=== PATIENT | female | born 1995 | race Hispanic/Latino ===

== ENCOUNTER 2017-06-06 23:21 | Emergency (ER) | payer OTHER ==
[2017-06-06 23:51] LABS: Absolute Lymphocytes (CBC) 1.9 K/uL (0.7-4.9); Absolute Monocytes 0.5 K/uL (0.1-1.3); Absolute Neutrophil 5.8 K/uL (1.8-8.0); Basophils % 0.5 % (0-1.3); Eosinophils % 2.5 % (0-4.4); Hematocrit 34.3 % (36.0-45.0); Lymphocytes % 22.7 % (15.3-44.8); MCH 21.5 pg (27.0-35.0); MCV 65.9 fL (80-100); MPV 7.9 fL (7.6-11.3); Monocytes % 6.1 % (3.3-12.3)
[2017-06-07 00:11] LABS: Bicarbonate 24 mEq/L (21-31); Glucose Level 116 mg/dL (65-120); Potassium 3.4 mEq/L (3.6-5.0); Sodium Level 138 mEq/L (135-145)
[2017-06-07 00:12] LABS: BUN Blood Urea Nitrogen 15 mg/dL (6-20)
[2017-06-07 00:32] LABS: Anisocytosis 1+; Blood Morphology Comment NOTED (NOT SEEN); Hypochromasia 1+; Platelet Estimate ADEQ; Urine White Blood Cell Casts OK
[2017-06-07] MEDS ORDERED: KETOROLAC 30 MG/ML INJ ONE (00:42)
[2017-06-07 00:53] LABS: Barbiturates NEGATIVE; Benzodiazepines NEGATIVE; Cocaine NEGATIVE; METHAMPHETAM NEGATIVE; Opiates NEGATIVE; Phencyclidine NEGATIVE; THC Cannibis NEGATIVE
--- NOTE | 2017-06-07 05:10 | ER ---
Nurse's Notes [facility] Name: Chelsy Riddle Age: 22 yrs Sex: Female : 1995 Arrival Date: 06/06/2017 Time: 23:29 Bed 14 Private MD: Diagnosis: Chest pain, unspecified Presentation: 06/06 23:30 Presenting complaint: Patient states: "I have MVP of the heart and today I'm having ao chest pain." Patient describes pain as stabbing that radiates to the left side. Transition of care: patient was not received from another setting of care. Onset of symptoms was June 06, 2017 at 21:00. Care prior to arrival: None. 23:30 Method Of Arrival: Ambulatory ao 23:30 Acuity: JOSEPH 3 ao Triage Assessment: 23:35 General: Appears in no apparent distress. uncomfortable, Behavior is crying. Pain: ao Complains of pain in chest. EENT: No signs and/or symptoms were reported regarding the EENT system. Neuro: Level of Consciousness is awake, alert, obeys commands, Oriented to person, place, time, situation, Appropriate for age Moves all extremities. Speech is normal, Facial symmetry appears normal, Pupils are PERRLA. Cardiovascular: Cardiovascular: Capillary refill < 3 seconds Patient's skin is warm and dry. Respiratory: Airway is patent Respiratory effort is even, unlabored, Respiratory pattern is regular, symmetrical. GI: Abdomen is non-distended. : No signs and/or symptoms were reported regarding the genitourinary system. Derm: No signs and/or symptoms reported regarding the dermatologic system. Musculoskeletal: No signs and/or symptoms reported regarding the musculoskeletal system. 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 - Social history:: Smoking status: Patient/guardian denies using tobacco, Patient/guardian denies using alcohol, street drugs. Screenin:35 Abuse screen: Denies threats or abuse. Denies injuries from another. Nutritional ao screening: No deficits noted. Tuberculosis screening: No symptoms or risk factors identified. Fall Risk None identified. Assessment: 23:36 Pain: Pain radiates to Left side Pain Pain began 4 hours ago. ao 23:45 General: Appears in no apparent distress. comfortable, Behavior is calm, cooperative, aa1 appropriate for age. Pain: Complains of pain in chest Pain currently is 10 out of 10 on a pain scale. Quality of pain is described as stabbing, Is continuous. Neuro: Level of Consciousness is awake, alert, obeys commands, Oriented to person, place, time, situation, Gait is steady. Cardiovascular: Reports chest pain, Denies diaphoresis, nausea, palpitations, shortness of breath, Heart tones S1 S2 present Rhythm is regular. Respiratory: Airway is patent Respiratory effort is even, unlabored, Respiratory pattern is regular, symmetrical. GI: No signs and/or symptoms were reported involving the gastrointestinal system. : No signs and/or symptoms were reported regarding the genitourinary system. EENT: No signs and/or symptoms were reported regarding the EENT system. Derm: Skin is intact, is healthy with good turgor, Skin is pink, warm \\T\\ dry. Musculoskeletal: Capillary refill < 3 seconds. 06/07 00:32 Reassessment: Patient appears in no apparent distress at this time. Patient and/or aa1 family updated on plan of care and expected duration. Pain level reassessed. Patient is alert, oriented x 3, equal unlabored respirations, skin warm/dry/pink. Awaiting CXR. Patient states symptoms have improved. 00:40 Reassessment: Pt taken to xray. aa1 01:38 Reassessment: Patient appears in no apparent distress at this time. Patient is alert, aa1 oriented x 3, equal unlabored respirations, skin warm/dry/pink. Discussed d/c \\T\\ f/u instructions with pt \\T\\ mother; denies questions or concerns at this time Patient states feeling better. Vital Signs: 06/06 23:32 BP 130 / 97; Pulse 91; Resp 18; Temp 97.8(O); Pulse Ox 100% on R/A; Weight 48.08 kg ao (R); Height 5 ft. 2 in. (157.48 cm) (R); Pain 10/10; 06/07 00:18 BP 122 / 80; Pulse 77; Resp 18; Pulse Ox 100% on R/A; aa1 01:38 BP 127 / 80; Pulse 61; Resp 16; Temp 97.9; Pulse Ox 100% on R/A; Pain 4/10; aa1 06/06 23:32 Body Mass Index 19.39 (48.08 kg, 157.48 cm) ao ED Course: 06/06 23:29 Patient arrived in ED. ao 23:32 Jaci Ivey FNP-C is PHCP. snw 23:32 Juliano Younger MD is Attending Physician. snw 23:32 Triage completed. ao 23:32 Arm band placed on right wrist. Patient placed in an exam room, on a stretcher, on ao court monitor, on pulse oximetry. 23:36 Patient has correct armband on for positive identification. Pulse ox on. NIBP on. ao 23:36 Patient maintains SpO2 saturation greater than 95% on room air. ao 23:40 Initial lab(s) drawn, by me, sent to lab. Inserted saline lock: 20 gauge in right aa1 antecubital area, using aseptic technique. 23:43 EKG done, by ED staff. cb2 23:48 Kayleen Medrano, RN is Primary Nurse. aa1 06/07 00:32 UDS Sent. aa1 01:45 No provider procedures requiring assistance completed. IV discontinued, intact, aa1 bleeding controlled, No redness/swelling at site. Pressure dressing applied. Administered Medications: 00:27 Drug: TORadol 30 mg Route: IVP; Site: right antecubital; aa1 01:44 Follow up: Response: No adverse reaction; Pain is decreased aa1 Outcome: 01:31 Discharge ordered by . snw 01:45 Discharged to home ambulatory, with family. aa1 01:45 Condition: good 01:45 Discharge instructions given to patient, family, Instructed on discharge instructions, follow up and referral plans. medication usage, Demonstrated understanding of instructions, follow-up care, medications, Prescriptions given X 2. 01:46 Patient left the ED. aa1 Signatures: Kayleen Medrano RN RN aa1 Jaci Ivey FNP-C FNP-Clemente Lux RN RN Miguelito Lin cb2 Corrections: (The following items were deleted from the chart) 06/06 23:34 23:30 Presenting complaint: Patient states: "I have MBP of the heart and today I'm ao having chest pain." Patient describes pain as stabbing that radiates to the left side. ao
--- NOTE | 2017-06-07 05:10 | EDPHYS ---
Physician Documentation [facility] Name: Chelsy Riddle Age: 22 yrs Sex: Female : 1995 Arrival Date: 06/06/2017 Time: 23:29 Bed 14 Private MD: ED Physician Juliano Younger HPI: 06/07 01:28 This 22 yrs old Female presents to ER via Ambulatory with complaints of Chest snw Pain. 01:28 The patient or guardian reports chest pain that is located primarily in the anterior snw chest wall, bilaterally. The pain radiates to back. Associated signs and symptoms: Pertinent positives: lightheadedness. The chest pain is described as sharp, stabbing. Duration: The patient or guardian reports multiple episodes, that wax and wane. Severity of pain: At its worst the pain was moderate severe. The patient has experienced similar episodes in the past. post x 2 months, hx of MVP, saw Dr. Yanes 2 years ago. Usually controls pain with Motrin. 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 - Social history:: Smoking status: Patient/guardian denies using tobacco, Patient/guardian denies using alcohol, street drugs. ROS: 06/07 01:30 Constitutional: Negative for fever, chills, and weight loss, Eyes: Negative for injury, snw pain, redness, and discharge, ENT: Negative for injury, pain, and discharge, Neck: Negative for injury, pain, and swelling, Respiratory: Negative for shortness of breath, cough, wheezing, and pleuritic chest pain, Abdomen/GI: Negative for abdominal pain, nausea, vomiting, diarrhea, and constipation, Back: Negative for injury and pain, : Negative for injury, bleeding, discharge, and swelling, MS/Extremity: Negative for injury and deformity, Skin: Negative for injury, rash, and discoloration, Neuro: Negative for headache, weakness, numbness, tingling, and seizure. Cardiovascular: Positive for chest pain. Exam: 01:30 Constitutional: This is a well developed, well nourished patient who is awake, alert, snw and in no acute distress. Head/Face: Normocephalic, atraumatic. Eyes: Pupils equal round and reactive to light, extra-ocular motions intact. Lids and lashes normal. Conjunctiva and sclera are non-icteric and not injected. Cornea within normal limits. Periorbital areas with no swelling, redness, or edema. ENT: Nares patent. No nasal discharge, no septal abnormalities noted. Tympanic membranes are normal and external auditory canals are clear. Oropharynx with no redness, swelling, or masses, exudates, or evidence of obstruction, uvula midline. Mucous membranes moist. Neck: Trachea midline, no thyromegaly or masses palpated, and no cervical lymphadenopathy. Supple, full range of motion without nuchal rigidity, or vertebral point tenderness. No Meningismus. Chest/axilla: Normal chest wall appearance and motion. Nontender with no deformity. No lesions are appreciated. Cardiovascular: Regular rate and rhythm with a normal S1 and S2. No gallops, murmurs, or rubs. Normal PMI, no JVD. No pulse deficits. Respiratory: Lungs have equal breath sounds bilaterally, clear to auscultation and percussion. No rales, rhonchi or wheezes noted. No increased work of breathing, no retractions or nasal flaring. Abdomen/GI: Soft, non-tender, with normal bowel sounds. No distension or tympany. No guarding or rebound. No evidence of tenderness throughout. Back: No spinal tenderness. No costovertebral tenderness. Full range of motion. Skin: Warm, dry with normal turgor. Normal color with no rashes, no lesions, and no evidence of cellulitis. MS/ Extremity: Pulses equal, no cyanosis. Neurovascular intact. Full, normal range of motion. Neuro: Awake and alert, GCS 15, oriented to person, place, time, and situation. Cranial nerves II-XII grossly intact. Motor strength 5/5 in all extremities. Sensory grossly intact. Cerebellar exam normal. Normal gait. Psych: Awake, alert, with orientation to person, place and time. Behavior, mood, and affect are within normal limits. Vital Signs: 06/06 23:32 BP 130 / 97; Pulse 91; Resp 18; Temp 97.8(O); Pulse Ox 100% on R/A; Weight 48.08 kg ao (R); Height 5 ft. 2 in. (157.48 cm) (R); Pain 10/10; 06/07 00:18 BP 122 / 80; Pulse 77; Resp 18; Pulse Ox 100% on R/A; aa1 01:38 BP 127 / 80; Pulse 61; Resp 16; Temp 97.9; Pulse Ox 100% on R/A; Pain 4/10; aa1 06/06 23:32 Body Mass Index 19.39 (48.08 kg, 157.48 cm) ao MDM: 06/06 23:32 Patient medically screened. snw 06/07 01:32 ECG:. The patient's pulmonary embolism risk score was calculated as follows: Total snw Score: 0-2 points. This patient was found to be at low risk for a pulmonary embolism by using the Well's assessment criteria. LOWELL Risk Score: 1 - Recent [<24hrs] Severe Angina, TOTAL SCORE = 1. Data reviewed: vital signs, nurses notes. Data interpreted: Pulse oximetry: on room air is 100 %. Interpretation: normal. Counseling: I had a detailed discussion with the patient and/or guardian regarding: the historical points, exam findings, and any diagnostic results supporting the discharge/admit diagnosis, the presence of at least one elevated blood pressure reading (>120/80) during this emergency department visit, lab results, radiology results, the need for outpatient follow up, to return to the emergency department if symptoms worsen or persist or if there are any questions or concerns that arise at home. Special discussion: Based on the patient's history, exam, and Dx evaluation, there is no indication for emergent intervention or inpatient Tx. It is understood by the patient/guardian that if the Sx's persist or worsen they need to return immediately for re-evaluation. Based on the history and exam findings, there is no indication for further emergent testing or inpatient evaluation. I discussed with the patient/guardian the need to see the tar pot worker for further evaluation of the symptoms. I discussed with the patient/guardian the need to see the primary care provider for further evaluation of the symptoms. 06/06 23:33 Order name: UDS snw 06/06 23:33 Order name: CBC with Diff snw 06/06 23:33 Order name: Chem 7 snw 06/06 23:33 Order name: Troponin (emerg Dept Use Only) snw 06/06 23:52 Order name: CBC with Automated Diff; Complete Time: 00:55 EDMS 06/07 00:11 Order name: Basic Metabolic Panel; Complete Time: 00:55 EDMS 06/06 23:33 Order name: EKG; Complete Time: 23:33 snw 06/06 23:33 Order name: EKG - Nurse/Tech; Complete Time: 23:37 snw 06/07 00:08 Order name: Chest Pa And Lat (2 Views) XRAY snw 06/07 00:17 Order name: Troponin (Emerg Dept Use Only); Complete Time: 00:55 EDMS 06/07 00:32 Order name: CBC Smear Scan; Complete Time: 00:55 EDMS 06/07 00:53 Order name: Urine Drug Screen; Complete Time: 00:55 EDMS Administered Medications: 00:27 Drug: TORadol 30 mg Route: IVP; Site: right antecubital; aa1 01:44 Follow up: Response: No adverse reaction; Pain is decreased aa1 Disposition: 06/07/17 01:31 Discharged to Home. Impression: Chest pain, unspecified. - Condition is Stable. - Discharge Instructions: Nonspecific Chest Pain, Electrocardiography, Hypertension. - Prescriptions for Protonix 40 mg Oral Tablet - take 1 tablet by ORAL route once daily; 30 tablet. Diclofenac Sodium 75 mg Oral Tablet Sustained Release - take 1 tablet by ORAL route 2 times per day; 30 tablet. - Medication Reconciliation Form, Thank You Letter, Antibiotic Education, Prescription Opioid Use form. - Follow up: Private Physician; When: Tomorrow; Reason: Recheck today's complaints, Continuance of care, Re-evaluation by your physician. Follow up: Emergency Department; When: As needed; Reason: Worsening of condition. Addendum: 06/09/2017 07:05 Co-signature as Attending Physician, Juliano Younger MD I agree with the assessment and w a plan of care. Signatures: Dispatcher [employer] EDKayleen Colón RN RN aa1 Jaci Ivey, LOCAL SALES MANAGER-C LOCAL SALES MANAGER-Csnw Clemente Brewster RN RN ao [place], [place]
--- NOTE | 2017-06-07 05:11 | EKG ---
Test Date: 2017-06-06 Test Time: 23:36:11 Tape Controlled Machine Stitcher: SAL MEASUREMENT RESULTS: Intervals: Rate: 74 AL: 140 QRSD: 80 QT: 396 QTc: 439 [place]: P: 44 AL: 140 QRS: 57 T: 20 INTERPRETIVE STATEMENTS: Normal sinus rhythm Normal ECG No previous ECG available for comparison Electronically Signed On 06-07-17 05:10:45 CDT by Juan Crook
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
== END 2017-06-07 01:46 | disposition home or self-care (01) ==
LOC: ER 23:21
DX: R07.9 Chest pain, unspecified (principal); I34.1 Nonrheumatic mitral (valve) prolapse
CPT/HCPCS: 36415; 71046; 80048; 80307; 84484; 85025; 93005; 96374; 99284

== ENCOUNTER 2017-12-27 17:01 | Emergency (ER) | payer OTHER, SELFPAY ==
--- NOTE | 2017-12-27 18:49 | RAD REPORT ---
EXAM DESCRIPTION: CT - Head Brain Wo Cont - 12/27/2017 6:28 pm CLINICAL HISTORY: HEADACHE COMPARISON: Head Brain Wo Cont dated 08/25/2015 TECHNIQUE: All CT scans are performed using dose optimization technique as appropriate and may inclu de automated exposure control or mA/KV adjustment according to patient size. FINDINGS: No intracranial hemorrhage, hydrocephalus or extra-axial fluid collection.No areas of brai n edema or evidence of midline shift. The paranasal sinuses and mastoids are clear. The calvarium is intact. IMPRESSION: No acute intracranial abnormality.
--- NOTE | 2017-12-27 18:56 | ER ---
Nurse's Notes [facility] Name: Chelsy Riddle Age: 22 yrs Sex: Female : 1995 Arrival Date: 12/27/2017 Time: 17:04 Bed 8 Private MD: None, None Diagnosis: Headache Presentation: 12/27 17:07 Presenting complaint: Patient states: i ve had a headache since yesterday, front area; hj light sensitive; took ibuprofen but not helping; reports nausea and vomiting; hx of migraine;. Transition of care: patient was not received from another setting of care. Onset of symptoms was December 27, 2017. Risk Assessment: Do you want to hurt yourself or someone else? Patient reports no desire to harm self or others. Initial Sepsis Screen: Does the patient meet any 2 criteria? No. Patient's initial sepsis screen is negative. Does the patient have a suspected source of infection? No. Patient's initial sepsis screen is negative. Care prior to arrival: None. 17:07 Method Of Arrival: Ambulatory 17:07 Acuity: JOSEPH 3 hj Triage Assessment: 17:09 Headache History: The patient has had previous headaches. General: Appears in no hj apparent distress. uncomfortable, Behavior is calm, cooperative, appropriate for age. Pain: Complains of pain in head Pain currently is 10 out of 10 on a pain scale. Pain began 1 day ago. Also complains of nausea. Neuro: Level of Consciousness is awake, alert, obeys commands, Oriented to person, place, time, situation, Appropriate for age. 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 - Social history:: Smoking status: Patient/guardian denies using tobacco, Patient/guardian denies using alcohol. - Ebola Screening: : Patient negative for fever greater than or equal to 101.5 degrees Fahrenheit, and additional compatible Ebola Virus Disease symptoms Patient denies exposure to infectious person Patient denies travel to an Ebola-affected area in the 21 days before illness onset. Screenin:10 Abuse screen: Denies threats or abuse. Denies injuries from another. Nutritional hj screening: No deficits noted. Tuberculosis screening: No symptoms or risk factors identified. Fall Risk None identified. Assessment: 18:10 General: Appears in no apparent distress. uncomfortable, slender, well groomed, well sg developed, well nourished, Behavior is calm, cooperative, appropriate for age. Pain: Complains of pain in head Quality of pain is described as aching. Neuro: Level of Consciousness is awake, alert, obeys commands, Oriented to person, place, time, situation, Speech is normal, Facial symmetry appears normal. Cardiovascular: Capillary refill is brisk in bilateral fingers Patient's skin is warm and dry. Chest pain is denied. Respiratory: Airway is patent Respiratory effort is even, unlabored, Respiratory pattern is regular, symmetrical. GI: Abdomen is flat, non-distended. : No signs and/or symptoms were reported regarding the genitourinary system. EENT: No signs and/or symptoms were reported regarding the EENT system. Derm: Skin is pink, warm \T\ dry. Musculoskeletal: No signs and/or symptoms reported regarding the musculoskeletal system. 19:00 Reassessment: Patient appears in no apparent distress at this time. Patient and/or sg family updated on plan of care and expected duration. Pain level reassessed. Patient is alert, oriented x 3, equal unlabored respirations, skin warm/dry/pink. Patient states symptoms have not improved. 19:46 Reassessment: Patient appears in no apparent distress at this time. Patient and/or aa1 family updated on plan of care and expected duration. Pain level reassessed. Patient is alert, oriented x 3, equal unlabored respirations, skin warm/dry/pink. NS bolus infusing. Will d/c pt once bolus complete per provider orders. 20:10 Reassessment: Patient appears in no apparent distress at this time. Patient and/or aa1 family updated on plan of care and expected duration. Pain level reassessed. Patient is alert, oriented x 3, equal unlabored respirations, skin warm/dry/pink. 500cc NS infused from liter bag at this time however pt states she would like to be discharged w/o finishing her IVF. Discussed d/c \T\ f/u instructions with pt; denies questions or concerns at this time Patient states feeling better. Vital Signs: 17:10 BP 122 / 81; Pulse 75; Resp 18; Temp 98.2(O); Pulse Ox 100% on R/A; Weight 52.62 kg; hj Height 5 ft. 3 in. (160.02 cm); Pain 10/10; 20:10 BP 120 / 76; Pulse 74; Resp 16; Pulse Ox 100% on R/A; Pain 3/10; aa1 17:10 Body Mass Index 20.55 (52.62 kg, 160.02 cm) ED Course: 17:04 Patient arrived in ED. mr 17:04 None, None is Private Physician. mr 17:08 Triage completed. hj 17:10 Arm band placed on left wrist. hj 17:12 Patient has correct armband on for positive identification. Bed in low position. Call light in reach. Side rails up X 1. 17:31 Grayson Daomn NP is PHCP. pm1 17:31 Nancy Evans MD is Attending Physician. pm1 18:16 Inserted saline lock: 22 gauge in right antecubital area, using aseptic technique. jb1 18:28 CT Head Brain wo Cont In Process Unspecified. EDMS 19:45 Kayleen Medrano, RN is Primary Nurse. aa1 20:10 No provider procedures requiring assistance completed. IV discontinued, intact, aa1 bleeding controlled, No redness/swelling at site. Pressure dressing applied. Administered Medications: 18:45 Drug: NS 0.9% 1000 ml Route: IV; Rate: 1000 ml; Site: right antecubital; sg 20:10 Follow up: IV Status: Completed infusion aa1 18:45 Drug: Benadryl 25 mg Route: PO; sg 20:10 Follow up: Response: No adverse reaction; Marked relief of symptoms aa1 18:45 Drug: TORadol 30 mg Route: IVP; Site: right antecubital; sg 20:10 Follow up: Response: No adverse reaction; Pain is decreased aa1 18:45 Drug: Reglan 10 mg Route: IVP; Site: right antecubital; sg 20:10 Follow up: Response: No adverse reaction; Pain is decreased aa1 Outcome: 18:55 Discharge ordered by . pm1 20:10 Discharged to home ambulatory. aa1 20:10 Condition: good 20:10 Discharge instructions given to patient, Instructed on discharge instructions, follow up and referral plans. medication usage, Demonstrated understanding of instructions, follow-up care, medications, Prescriptions given X 1. 20:12 Patient left the ED. aa1 Signatures: Dispatcher [employer] EDÁlvaro Epperson jb1 Chris Mckenna, RN RN Kayleen Delacruz RN RN aa1 Tori Diaz mr EdwinJase RN RN hj Marinas, Patrick, GEORGI HAND LASTER pm1 Corrections: (The following items were deleted from the chart) 17:13 17:10 Pulse 75bpm; Resp 18bpm; Pulse Ox 100% RA; Temp 98.2F Oral; 52.62 kg; Height 5 hj ft. 3 in.; BMI: 20.5; Pain 12/23; hj
--- NOTE | 2017-12-27 18:56 | EDPHYS ---
Physician Documentation [facility] Name: Chelsy Riddle Age: 22 yrs Sex: Female : 1995 Arrival Date: 12/27/2017 Time: 17:04 Bed 8 Private MD: None, None ED Physician Nancy Evans HPI: 12/27 18:53 This 22 yrs old Female presents to ER via Ambulatory with complaints of pm1 Headache. 18:53 The patient complains of pain to the forehead. The patient describes the headache as pm1 aching, constant. Onset: The symptoms/episode began/occurred yesterday. Associated signs and symptoms: Pertinent positives: Photophobia Pertinent negatives: altered mental status, dizziness, fever, nausea, paresthesias, rash, vision changes, vomiting, weakness. Severity of symptoms: in the emergency department the pain is actually worse. Headache History: The patient has had previous headaches and this one is more severe than previous episodes. The symptoms are alleviated by nothing. the symptoms are aggravated by lights, noise. The patient has not experienced similar symptoms in the past. The patient has not recently seen a physician. 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 - Social history:: Smoking status: Patient/guardian denies using tobacco, Patient/guardian denies using alcohol. - Ebola Screening: : Patient negative for fever greater than or equal to 101.5 degrees Fahrenheit, and additional compatible Ebola Virus Disease symptoms Patient denies exposure to infectious person Patient denies travel to an Ebola-affected area in the 21 days before illness onset. ROS: 18:53 Constitutional: Negative for fever, chills, and weight loss, Eyes: Negative for injury, pm1 pain, redness, and discharge, ENT: Negative for injury, pain, and discharge, Neck: Negative for injury, pain, and swelling, Cardiovascular: Negative for chest pain, palpitations, and edema, Respiratory: Negative for shortness of breath, cough, wheezing, and pleuritic chest pain, Abdomen/GI: Negative for abdominal pain, nausea, vomiting, diarrhea, and constipation, Back: Negative for injury and pain, MS/Extremity: Negative for injury and deformity, Skin: Negative for injury, rash, and discoloration. 18:53 Neuro: Positive for headache, Negative for dizziness, numbness, tingling, weakness. Exam: 18:53 Constitutional: This is a well developed, well nourished patient who is awake, alert, pm1 and in no acute distress. Head/Face: Normocephalic, atraumatic. Eyes: Pupils equal round and reactive to light, extra-ocular motions intact. Lids and lashes normal. Conjunctiva and sclera are non-icteric and not injected. Cornea within normal limits. Periorbital areas with no swelling, redness, or edema. ENT: Nares patent. No nasal discharge, no septal abnormalities noted. Tympanic membranes are normal and external auditory canals are clear. Oropharynx with no redness, swelling, or masses, exudates, or evidence of obstruction, uvula midline. Mucous membranes moist. Neck: Trachea midline, no thyromegaly or masses palpated, and no cervical lymphadenopathy. Supple, full range of motion without nuchal rigidity, or vertebral point tenderness. No Meningismus. Chest/axilla: Normal chest wall appearance and motion. Nontender with no deformity. No lesions are appreciated. Cardiovascular: Regular rate and rhythm with a normal S1 and S2. No gallops, murmurs, or rubs. No pulse deficits. Respiratory: Lungs have equal breath sounds bilaterally, clear to auscultation and percussion. No rales, rhonchi or wheezes noted. No increased work of breathing, no retractions or nasal flaring. Abdomen/GI: Soft, non-tender, with normal bowel sounds. No distension or tympany. No guarding or rebound. No evidence of tenderness throughout. Back: No spinal tenderness. No costovertebral tenderness. Full range of motion. Skin: Warm, dry with normal turgor. Normal color with no rashes, no lesions, and no evidence of cellulitis. MS/ Extremity: Pulses equal, no cyanosis. Neurovascular intact. Full, normal range of motion. 18:53 Neuro: Orientation: is normal, Mentation: is normal, Cranial nerves: CN II- XII are normal as tested, Cerebellar function: normal finger to nose testing, Motor: is normal, moves all fours, strength is normal, strength is 5/5 in all extremities, Sensation: is normal, no obvious gross deficits, Gait: is steady, at a normal pace, without difficulty. Vital Signs: 17:10 BP 122 / 81; Pulse 75; Resp 18; Temp 98.2(O); Pulse Ox 100% on R/A; Weight 52.62 kg; hj Height 5 ft. 3 in. (160.02 cm); Pain 10/10; 20:10 BP 120 / 76; Pulse 74; Resp 16; Pulse Ox 100% on R/A; Pain 3/10; aa1 17:10 Body Mass Index 20.55 (52.62 kg, 160.02 cm) hj MDM: 17:51 Patient medically screened. pm1 18:53 Data reviewed: vital signs. Data interpreted: Pulse oximetry: on room air is 100 %. pm1 Interpretation: normal. Counseling: I had a detailed discussion with the patient and/or guardian regarding: the historical points, exam findings, and any diagnostic results supporting the discharge/admit diagnosis, radiology results, the need for outpatient follow up, to return to the emergency department if symptoms worsen or persist or if there are any questions or concerns that arise at home. 12/27 18:00 Order name: Urine Dipstick--Ancillary (enter results); Complete Time: 20:49 bd 12/27 18:02 Order name: Urine --Ancillary (enter results); Complete Time: 20:49 bd 12/27 18:05 Order name: CT Head Brain wo Cont; Complete Time: 18:53 pm1 12/27 18:05 Order name: IV Saline Lock; Complete Time: 18:16 pm1 Administered Medications: 18:45 Drug: NS 0.9% 1000 ml Route: IV; Rate: 1000 ml; Site: right antecubital; sg 20:10 Follow up: IV Status: Completed infusion aa1 18:45 Drug: Benadryl 25 mg Route: PO; sg 20:10 Follow up: Response: No adverse reaction; Marked relief of symptoms aa1 18:45 Drug: TORadol 30 mg Route: IVP; Site: right antecubital; sg 20:10 Follow up: Response: No adverse reaction; Pain is decreased aa1 18:45 Drug: Reglan 10 mg Route: IVP; Site: right antecubital; sg 20:10 Follow up: Response: No adverse reaction; Pain is decreased aa1 Disposition: 12/28 09:54 Co-signature as Attending Physician, Nancy Evans MD. ma2 Disposition: 12/27/17 18:55 Discharged to Home. Impression: Headache. - Condition is Stable. - Discharge Instructions: Migraine Headache. - Prescriptions for Fiorinal 50- 325-40 mg Oral Capsule - take 1 capsule by ORAL route every 4 hours As needed - not to exceed 6 capsules per day; 20 capsule. - Medication Reconciliation Form, Thank You Letter, Antibiotic Education, Prescription Opioid Use form. - Follow up: Emergency Department; When: As needed; Reason: Worsening of condition. Follow up: Private Physician; When: 2 - 3 days; Reason: Recheck today's complaints, Continuance of care, Re-evaluation by your physician. - Problem is new. - Symptoms have improved. Signatures: Dispatcher [employer] EDMS Chris Mckenna RN RN Kayleen Medrano RN RN aa1 Jase Pineda RN RN Grayson Damon, AUTOMATIC MACHINES SUPERVISOR AUTOMATIC MACHINES SUPERVISOR pm1 Nancy Evans MD MD ma2 Corrections: (The following items were deleted from the chart) 12/27 20:12 18:55 12/27/2017 18:55 Discharged to Home. Impression: Headache. Condition is Stable. aa1 Forms are Medication Reconciliation Form, Thank You Letter, Antibiotic Education, Prescription Opioid Use. Follow up: Emergency Department; When: As needed; Reason: Worsening of condition. Follow up: Private Physician; When: 2 - 3 days; Reason: Recheck today's complaints, Continuance of care, Re-evaluation by your physician. Problem is new. Symptoms have improved. pm1
[2017-12-27] MEDS ORDERED: NA CHLORIDE 0.9% 1,000 ML ONE (19:15)
[2017-12-27] MEDS ORDERED: DIPHENHYDRAMINE 12.5MG/5ML LIQ ONE (19:15)
[2017-12-27] MEDS ORDERED: KETOROLAC 30 MG/ML INJ ONE (19:15)
[2017-12-27] MEDS ORDERED: METOCLOPRAMIDE 10 MG/2mL INJ ONE (19:15)
[2017-12-27 19:54] LABS: Urine Blood 2+ (NEG); Urine Glucose NEGATIVE (NEG); Urine Protein 1+ (NEG); Urine Specific Gravity 1.015 (1.005-1.030); Urine pH 8.5 (5.0-7.0)
== END 2017-12-27 20:12 | disposition home or self-care (01) ==
LOC: ER 17:01
DX: R51 Headache (principal)
CPT/HCPCS: 70450; 81003; 81025; 96361; 96374; 96375; 99284; J2765; J7030

== ENCOUNTER 2019-06-12 19:23 | Emergency (ER) | payer SELFPAY ==
--- OUTSIDE RECORDS SUMMARY | 2019-06-12 19:26 | XMS REPORT ---
:1995 [facility] Address [address] [place] [address] [address] [place] [address] Care Team Providers Name Role Phone Unavailable Unavailable Unavailable Problems This patient has no known problems. Allergies, Adverse Reactions, Alerts This patient has no known allergies or adverse reactions. Medications This patient has no known medications.
[2019-06-12 20:14] LABS: Absolute Lymphocytes (CBC) 1.8 K/uL (0.7-4.9); Basophils % 0.8 % (0-1.3); Hematocrit 32.8 % (36.0-45.0); Lymphocytes % 30.1 % (15.3-44.8); MPV 8.2 fL (7.6-11.3); RBC Red Blood Cell Count 4.77 M/uL (3.86-4.86)
[2019-06-12 20:35] LABS: BUN Blood Urea Nitrogen 13 mg/dL (7-18); Bicarbonate 25 mmol/L (21-32); Blood Morphology Comment NOTED (NOT SEEN); Glucose Level 91 mg/dL (74-106); Magnesium 2.1 mg/dL (1.8-2.4); Platelet Estimate ADEQ; Potassium 3.6 mmol/L (3.5-5.1); Sodium Level 140 mmol/L (136-145); Troponin (Emerg Dept Use Only) < 0.02 ng/mL (0.0-0.045); Urine White Blood Cell Casts OK
--- NOTE | 2019-06-12 20:35 | RAD REPORT ---
EXAM DESCRIPTION: Janette Single View06/12/2019 8:25 pm CLINICAL HISTORY: Chest pain COMPARISON: 2017 FINDINGS: The lungs appear clear of acute infiltrate. The heart is normal size IMPRESSION: No acute abnormalities displayed
[2019-06-12] MEDS ORDERED: KETOROLAC 30 MG/ML INJ ONE (21:03)
[2019-06-12] MEDS ORDERED: dexAMETHasone 10 MG/ML VIAL ONE (21:03)
--- NOTE | 2019-06-12 21:49 | EDPHYS ---
Physician Documentation [facility] Name: Chelsy Riddle Age: 24 yrs Sex: Female : 1995 Arrival Date: 06/12/2019 Time: 19:27 Bed 13 Private MD: ED Physician Abhijit Ponce HPI: 06/11 19:59 This 24 yrs old Female presents to ER via Ambulatory with complaints of Left rn arm pain. 19:59 The patient or guardian complains of pain, tingling. The complaints affect the entire rn left arm. Onset: The symptoms/episode began/occurred this morning. Modifying factors: The symptoms are alleviated by nothing. the symptoms are aggravated by movement. Associated signs and symptoms: Pertinent positives: numbness, pain, tingling, Pertinent negatives: decreased range of motion, deformity, erythema, fever, weakness. Severity of symptoms: At their worst the symptoms were mild, in the emergency department the symptoms are unchanged. The patient has not experienced similar symptoms in the past. Reports left arm pain, began this morning, no trauma, no fever, reports painful to touch as well as tingling/numbness, constant entire day. No deformity. No rash. No redness. Reports also has left chest wall pain, no sob or cough. Reports has MVP but hasn't felt like this.. 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 - Social history:: Smoking status: Patient denies any tobacco usage or history of. Patient/guardian denies using alcohol, street drugs, tobacco products. - Family history:: not pertinent. - Hospitalizations: : No recent hospitalization is reported. ROS: 19:59 Constitutional: Negative for fever, chills, and weight loss, Eyes: Negative for injury, rn pain, redness, and discharge, Neck: Negative for injury, pain, and swelling, Cardiovascular: Negative for palpitations, and edema, Respiratory: Negative for shortness of breath, cough, wheezing, and pleuritic chest pain, Abdomen/GI: Negative for abdominal pain, nausea, vomiting, diarrhea, and constipation, MS/Extremity: Negative for injury and deformity, Skin: Negative for injury, rash, and discoloration, Neuro: Negative for headache, weakness, and seizure. Exam: 19:59 Constitutional: This is a well developed, well nourished patient who is awake, alert, rn and in no acute distress. Ambulatory to room without difficulty or distress Head/Face: Normocephalic, atraumatic. Neck: Trachea midline, no thyromegaly or masses palpated, and no cervical lymphadenopathy. Supple, full range of motion without nuchal rigidity, or vertebral point tenderness. No Meningismus. Cardiovascular: Regular rate and rhythm. No pulse deficits. Respiratory: Lungs have equal breath sounds bilaterally, clear to auscultation. No increased work of breathing, no retractions or nasal flaring. Skin: Warm, dry with normal turgor. Normal color with no rashes, no lesions, and no evidence of cellulitis. MS/ Extremity: Pulses equal, no cyanosis. Neurovascular intact. Mild painful ROM entire left arm. Equal circumference. No mottling or induration. Neuro: Awake and alert, GCS 15, oriented to person, place, time, and situation. Cranial nerves II-XII grossly intact. Motor strength 5/5 in all extremities. Sensory grossly intact. Cerebellar exam normal. Normal gait. Vital Signs: 19:29 BP 153 / 79; Pulse 83; Resp 17; Temp 98.0; Pulse Ox 100% ; Weight 49.9 kg; Height 5 ft. ll1 2 in. (157.48 cm); Pain 10/10; 20:30 BP 141 / 70; Pulse 80; Resp 16; Pulse Ox 99% ; rr5 21:20 BP 123 / 78; Pulse 80; Resp 16; Pulse Ox 100% on R/A; rr5 22:00 BP 115 / 75; Pulse 92; Resp 17; Temp 97.8; Pulse Ox 99% ; Pain 4/10; rr5 19:29 Body Mass Index 20.12 (49.90 kg, 157.48 cm) ll1 MDM: 19:33 Patient medically screened. rn 20:47 Differential diagnosis: muscle pain, radiculopathy, radiated pain, pain from MVP, MSK rn pain, early infection. Data reviewed: vital signs, nurses notes, lab test result(s), EKG, radiologic studies, plain films, and as a result, I will discharge patient. Counseling: I had a detailed discussion with the patient and/or guardian regarding: the historical points, exam findings, and any diagnostic results supporting the discharge/admit diagnosis, lab results. 21:48 ED course: No acute findings, neg u/s, will dc home with steroids and rn anti-inflammatories. . 06/11 19:42 Order name: Basic Metabolic Panel; Complete Time: 20:47 rn 06/11 19:42 Order name: CBC with Diff; Complete Time: 20:47 rn 06/11 19:42 Order name: Troponin (emerg Dept Use Only); Complete Time: 20:47 rn 06/11 19:42 Order name: XRAY Chest (1 view); Complete Time: 20:47 rn 06/11 19:42 Order name: Magnesium; Complete Time: 20:47 rn 06/11 20:37 Order name: CBC Smear Scan; Complete Time: 20:47 EDMS 06/11 19:42 Order name: EKG; Complete Time: 19:44 rn 06/11 19:42 Order name: Cardiac monitoring; Complete Time: 19:56 rn 06/11 19:42 Order name: EKG - Nurse/Tech; Complete Time: 19:56 rn 06/11 19:42 Order name: IV Saline Lock; Complete Time: 19:56 rn 06/11 19:42 Order name: Labs collected and sent; Complete Time: 19:56 rn 06/11 20:50 Order name: Extremity Venous Uni [facility] rn 06/11 19:42 Order name: O2 Per Protocol; Complete Time: 19:56 rn 06/11 19:42 Order name: O2 Sat Monitoring; Complete Time: 19:56 rn Administered Medications: 21:06 Drug: TORadol - Ketorolac 15 mg Route: IVP; Site: left antecubital; ea 21:59 Follow up: Response: No adverse reaction; Pain is decreased rr5 21:07 Drug: Decadron - Dexamethasone 10 mg Route: IVP; Site: left antecubital; ea 21:59 Follow up: Response: No adverse reaction; Pain is decreased rr5 Disposition: 06/12/19 21:48 Discharged to Home. Impression: Pain in left arm. - Condition is Stable. - Discharge Instructions: Musculoskeletal Pain, Pain Without a Known Cause. - Prescriptions for Diclofenac Sodium 75 mg Oral Tablet, Delayed Release (E.C.) - take 1 tablet by ORAL route 2 times per day; 20 tablet. Medrol (Jc) 4 mg Oral Tablets, Dose Pack - take 1 tablet by ORAL route as directed - follow package instructions; 1 packet. - Medication Reconciliation Form, Thank You Letter, Antibiotic Education, Prescription Opioid Use form. - Follow up: Private Physician; When: As needed; Reason: Recheck today's complaints, Re-evaluation by your physician. - Problem is new. - Symptoms have improved. Signatures: Dispatcher [employer] EDMS Abhijit Ponce MD MD rn Antunez, Elena RN RN Taz Jackson RN RN rr5 Musa, Paula RN RN ll1 Corrections: (The following items were deleted from the chart) 22:03 21:48 06/12/2019 21:48 Discharged to Home. Impression: Pain in left arm. Condition is rr5 Stable. Discharge Instructions: Musculoskeletal Pain, Pain Without a Known Cause. Prescriptions for Diclofenac Sodium 75 mg Oral Tablet, Delayed Release (E.C.) - take 1 tablet by ORAL route 2 times per day; 20 tablet, Medrol (Jc) 4 mg Oral Tablets, Dose Pack - take 1 tablet by ORAL route as directed - follow package instructions; 1 packet. and Forms are Medication Reconciliation Form, Thank You Letter, Antibiotic Education, Prescription Opioid Use. Follow up: Private Physician; When: As needed; Reason: Recheck today's complaints, Re-evaluation by your physician. Problem is new. Symptoms have improved. rn
--- NOTE | 2019-06-12 21:49 | ER ---
Nurse's Notes [facility] Name: Chelsy Riddle Age: 24 yrs Sex: Female : 1995 Arrival Date: 06/12/2019 Time: 19:27 Bed 13 Private MD: Diagnosis: Pain in left arm Presentation: 06/11 19:29 Chief complaint: Patient states: Had left arm pain all day. Left sided CP started ll1 afterwards. + SOB. Slight cough. Hot flashes, no known fever. Coronavirus screen: Patient reports a cough. Patient reports shortness of breath or difficulty breathing. Patient denies measured and/or subjective temperature greater than 100.4F. Patient denies travel on a cruise ship or to a country the [facility] currently lists as an affected area. Patient denies contact with known and/or suspected case of COVID-19. Ebola Screen: Patient denies travel to an Ebola-affected area in the 21 days before illness onset. Initial Sepsis Screen: Does the patient meet any 2 criteria? No. Patient's initial sepsis screen is negative. Does the patient have a suspected source of infection? No. Patient's initial sepsis screen is negative. Risk Assessment: Do you want to hurt yourself or someone else? Patient reports no desire to harm self or others. 19:29 Method Of Arrival: Ambulatory ll1 19:29 Acuity: JOSEPH 3 ll1 19:29 Onset of symptoms was June 12, 2019. 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 - Social history:: Smoking status: Patient denies any tobacco usage or history of. Patient/guardian denies using alcohol, street drugs, tobacco products. - Family history:: not pertinent. - Hospitalizations: : No recent hospitalization is reported. Screenin:40 Abuse screen: Denies threats or abuse. Denies injuries from another. Nutritional rr5 screening: No deficits noted. Tuberculosis screening: No symptoms or risk factors identified. Fall Risk IV access (20 points). Total Skelton Fall Scale indicates No Risk (0-24 pts). Assessment: 19:30 General: Appears in no apparent distress. uncomfortable, Behavior is calm, cooperative, rr5 appropriate for age. 19:30 Pain: Complains of pain in left arm Pain does not radiate. Pain currently is 8 out of rr5 10 on a pain scale. Quality of pain is described as aching, Pain began gradually, Is intermittent. Neuro: Level of Consciousness is awake, alert, obeys commands, Oriented to person, time. Cardiovascular: Capillary refill < 3 seconds Patient's skin is warm and dry. Respiratory: Airway is patent Respiratory effort is even, unlabored, Respiratory pattern is regular, symmetrical. GI: No signs and/or symptoms were reported involving the gastrointestinal system. : No signs and/or symptoms were reported regarding the genitourinary system. EENT: No signs and/or symptoms were reported regarding the EENT system. Derm: Skin is intact, is healthy with good turgor, Skin temperature is warm. Musculoskeletal: Circulation, motion, and sensation intact. Capillary refill < 3 seconds. 20:15 Reassessment: Patient appears in no apparent distress at this time. No changes from rr5 previously documented assessment. Patient is alert, oriented x 3, equal unlabored respirations, skin warm/dry/pink. awaiting for results. 21:30 Reassessment: Patient appears in no apparent distress at this time. Patient is alert, rr5 oriented x 3, equal unlabored respirations, skin warm/dry/pink. ultrasound at bedside. 22:02 Reassessment: Patient appears in no apparent distress at this time. Patient is alert, rr5 oriented x 3, equal unlabored respirations, skin warm/dry/pink. discharge instruction given and explained without complaint made., Patient states feeling better. Patient states symptoms have improved. Vital Signs: 19:29 BP 153 / 79; Pulse 83; Resp 17; Temp 98.0; Pulse Ox 100% ; Weight 49.9 kg; Height 5 ft. ll1 2 in. (157.48 cm); Pain 10/10; 20:30 BP 141 / 70; Pulse 80; Resp 16; Pulse Ox 99% ; rr5 21:20 BP 123 / 78; Pulse 80; Resp 16; Pulse Ox 100% on R/A; rr5 22:00 BP 115 / 75; Pulse 92; Resp 17; Temp 97.8; Pulse Ox 99% ; Pain 4/10; rr5 19:29 Body Mass Index 20.12 (49.90 kg, 157.48 cm) ll1 ED Course: 19:27 Patient arrived in ED. ag3 19:31 Triage completed. ll1 19:32 Abhijit Ponce MD is Attending Physician. rn 19:32 Arm band placed on Patient placed in an exam room. ll1 19:51 Taz Dolan, RN is Primary Nurse. rr5 19:56 Patient has correct armband on for positive identification. Placed in gown. Bed in low rr5 position. Call light in reach. playground monitor on. Pulse ox on. NIBP on. 19:56 EKG done, by ED staff, reviewed by Abhijit Ponce MD. rr5 20:10 Inserted saline lock: 20 gauge in left antecubital area, using aseptic technique. dh4 20:26 XRAY Chest (1 view) In Process Unspecified. EDMS 21:56 Extremity Venous Uni Ltd US In Process Unspecified. EDMS Administered Medications: 21:06 Drug: TORadol - Ketorolac 15 mg Route: IVP; Site: left antecubital; ea 21:59 Follow up: Response: No adverse reaction; Pain is decreased rr5 21:07 Drug: Decadron - Dexamethasone 10 mg Route: IVP; Site: left antecubital; ea 21:59 Follow up: Response: No adverse reaction; Pain is decreased rr5 Outcome: 21:48 Discharge ordered by . rn 22:03 Patient left the ED. rr5 Signatures: Dispatcher [employer] EDMS Abhijit Ponce MD MD rn Antunez, Elena, RN RN ea Gomez, [facility] Taz Dolan, DOMENIC RN rr5 Luis Miguel Frias 4 Paula Vigil RN RN ll1
[2019-06-12 22:26] VITALS: BP 115/75; TEMP 97.8; O2SAT 99
--- NOTE | 2019-06-13 07:21 | RAD REPORT ---
EXAM DESCRIPTION: US - Extremity Venous Uni Ltd - 06/12/2019 9:55 pm CLINICAL HISTORY: Left arm pain and swelling COMPARISON: None. TECHNIQUE: Real-time sonographic evaluation of the left upper extremity deep venous systems was perf ormed. FINDINGS: Normal compressibility, flow augmentation, phasic flow and spontaneous flow are identified in the left upper extremity deep venous system. No intraluminal filling defects seen. Internal jugul ar and subclavian veins are normal as well. IMPRESSION: No DVT in the left upper extremity.
--- NOTE | 2019-06-14 05:27 | EKG ---
Test Date: 2019-06-12 Test Time: 19:46:29 [facility]: RR MEASUREMENT RESULTS: Intervals: Rate: 72 OR: 138 QRSD: 88 QT: 396 QTc: 433 [place]: P: 51 OR: 138 QRS: 70 T: 32 INTERPRETIVE STATEMENTS: Normal sinus rhythm Normal ECG Compared to ECG 06/06/2017 23:36:11 No significant changes Electronically Signed On 06-14-19 05:25:15 CDT by Alen Beckman
== END 2019-06-12 22:03 | disposition home or self-care (01) ==
LOC: ER 19:23
DX: M79.602 Pain in left arm (principal); I34.1 Nonrheumatic mitral (valve) prolapse
CPT/HCPCS: 36415; 71045; 80048; 83735; 84484; 85025; 93005; 93971; 96374; 96375; 99284; J1100

== ENCOUNTER 2020-12-15 15:51 | Emergency (ER) | payer SELFPAY ==
[2020-12-15 16:20] LABS: Urine Blood 1+ (Negative); Urine Glucose Negative (Negative); Urine Protein 1+ (Negative); Urine pH 8.5 (5.0-7.0)
[2020-12-15 16:36] LABS: Absolute Lymphocytes (CBC) 0.7 K/uL (0.7-4.9); Basophils % 0.3 % (0-1.3); Hematocrit 32.8 % (36.0-45.0); Lymphocytes % 5.5 % (15.3-44.8); MPV 8.1 fL (7.6-11.3); RBC Red Blood Cell Count 4.66 M/uL (3.86-4.86)
[2020-12-15 16:48] LABS: Urine Amorphous Sediment 1+ /HPF (NONE SEEN); Urine Bacteria 20-50 /HPF (<20)
[2020-12-15 16:52] LABS: ALT/SGPT 23 U/L (12-78); AST/SGOT 15 U/L (15-37); Albumin 3.8 g/dL (3.4-5.0); Alkaline Phosphatase 92 U/L (45-117); BUN Blood Urea Nitrogen 7 mg/dL (7-18); Bicarbonate 24 mmol/L (21-32); Bilirubin Direct 0.2 mg/dL (0-0.2); Bilirubin Total 0.7 mg/dL (0.2-1.0); Glucose Level 99 mg/dL (74-106); Lipase 54 U/L (73-393); Potassium 3.6 mmol/L (3.5-5.1); Protein, Total 8.1 g/dL (6.4-8.2); Sodium Level 140 mmol/L (136-145)
[2020-12-15] MEDS ORDERED: MORPHINE 2 MG/ML SYR ONE ×2 (16:55→18:02)
[2020-12-15] MEDS ORDERED: NA CHLORIDE 0.9% 1,000 ML ONE (16:55)
--- NOTE | 2020-12-15 17:33 | RAD REPORT ---
EXAM DESCRIPTION: CTAbdomen Pelvis W Contrast - 12/15/2020 5:24 pm CLINICAL HISTORY: . lower abdomen pain COMPARISON: No comparisons TECHNIQUE: Biphasic CT imaging of the abdomen and pelvis was performed with 100 ml non-ionic IV cont rast. All CT scans are performed using dose optimization technique as appropriate and may include automated exposure control or mA/KV adjustment according to patient size. FINDINGS: Lower chest: No acute abnormality. Liver: No acute abnormality or suspicious lesions. Biliary: No biliary ductal dilatation. Stomach: No significant focal abnormality. Duodenum: No significant focal abnormality. Pancreas: No significant abnormality. Spleen: No significant abnormality. Adrenal: No suspicious lesions. Kidney/ureter: No hydronephrosis. No renal calculi. Retroperitoneum: No retroperitoneal adenopathy. Vascular: No aneurysm. Bowel: No significant focal abnormality. No appendicitis. Peritoneum: No ascites or free air. Bladder: Grossly unremarkable. Reproductive: No adnexal masses. Dilated periuterine vessels. Bones: No acute fracture. Other: n/a IMPRESSION: No acute intra-abdominal or pelvic finding. Dilated pelvic veins which can be associated with pelvic congestion syndrome in the appropriate clinical setting. No appendicitis.
[2020-12-15] MEDS ORDERED: CEFTRIAXONE 1000 MG/VIAL ONE (17:34)
[2020-12-15] MEDS ORDERED: KETOROLAC 30 MG/ML INJ ONE (18:18)
--- NOTE | 2020-12-15 18:51 | RAD REPORT ---
EXAM DESCRIPTION: US - Transvaginal Study Probe - 12/15/2020 6:30 pm CLINICAL HISTORY: lower abdomen pain Pelvic pain. COMPARISON: Abdomen Pelvis W Contrast dated 12/15/2020 FINDINGS: Neither ovary was visualized. The uterus measures 10 cm in long axis. There are prominent extra uterine vessels. The endometrial echo complex measures 1 mm. No free fluid. IMPRESSION: Nonvisualized ovaries.Therefore, cannot exclude ovarian pathology based on this exam.
--- NOTE | 2020-12-15 19:00 | EDPHYS ---
Physician Documentation [facility] Name: Chelsy Riddle Age: 25 yrs Sex: Female : 1995 Arrival Date: 12/15/2020 Time: 15:53 Bed 12 Private MD: ED Physician Nancy Evans HPI: 12/15 16:13 This 25 yrs old Female presents to ER via Ambulatory with complaints of cp Abdominal Pain. 16:13 The patient presents with abdominal pain in the lower abdomen. Onset: The cp symptoms/episode began/occurred suddenly, last night, awoke patient from sleep. The symptoms radiate to right back. Associated signs and symptoms: Pertinent positives: dysuria, Pertinent negatives: anorexia, constipation, diarrhea, fever, hematuria, nausea, vomiting. The symptoms are described as burning. 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 - Social history:: Smoking status: Patient denies any tobacco usage or history of. ROS: 16:20 Constitutional: Negative for body aches, chills, fever, poor PO intake. cp Exam: 16:25 Constitutional: The patient appears in no acute distress, alert, awake, non-toxic, well cp developed, well nourished, uncomfortable. 16:25 Head/Face: Normocephalic, atraumatic. cp 16:25 Eyes: Periorbital structures: appear normal, Conjunctiva: normal, no exudate, no injection, Sclera: no appreciated abnormality, Lids and lashes: appear normal, bilaterally. 16:25 ENT: External ear(s): are unremarkable, Nose: is normal, Mouth: Lips: moist, Oral mucosa: moist, Posterior pharynx: Airway: no evidence of obstruction, patent. 16:25 Chest/axilla: Inspection: normal. 16:25 Cardiovascular: Rate: tachycardic, Rhythm: regular. 16:25 Respiratory: the patient does not display signs of respiratory distress, Respirations: normal, no use of accessory muscles, no retractions, labored breathing, is not present, Breath sounds: are clear throughout, no decreased breath sounds, no stridor, no wheezing. 16:25 Abdomen/GI: Inspection: abdomen appears normal, Bowel sounds: active, all quadrants, Palpation: soft, in all quadrants, severe abdominal tenderness, in the right lower quadrant and left lower quadrant, rebound tenderness, is not appreciated, voluntary guarding, is elicited in the right lower quadrant and left lower quadrant. 16:25 Back: pain, that is moderate, of the right low back, CVA tenderness, is absent. 17:45 : Pelvic Exam: External exam: is normal, Speculum exam: mild bleeding, cervicitis cp present, os that is closed, bimanual exam reveals cervical motion tenderness, uterine tenderness, no adnexa tenderness or masses bilaterally, discharge, yellow, the nurse was present for the exam, Sexual behavior: the patient is sexually active. Vital Signs: 15:56 BP 127 / 90; Pulse 115; Resp 16; Temp 100.2(TE); Pulse Ox 100% on R/A; Weight 49.9 kg; hb Height 5 ft. 2 in. (157.48 cm); Pain 10/10; 16:35 BP 118 / 71; Pulse 99; Resp 17; Pulse Ox 100% on R/A; es2 19:32 BP 118 / 71; Pulse 99; Resp 18; Temp 99; Pulse Ox 100% ; wr 15:56 Body Mass Index 20.12 (49.90 kg, 157.48 cm) hb MDM: 16:05 Patient medically screened. cp 16:30 Differential diagnosis: appendicitis, gastritis, Ovarian Torsion, Pelvic Inflammatory cp Disease, Pyelonephritis, Tubal Ovarian Abcess, urinary tract infection. 19:00 Data reviewed: vital signs, nurses notes, lab test result(s), radiologic studies, CT cp scan, ultrasound. 19:00 Counseling: I had a detailed discussion with the patient and/or guardian regarding: the cp historical points, exam findings, and any diagnostic results supporting the discharge/admit diagnosis, lab results, radiology results, the need for outpatient follow up, a family practitioner, to return to the emergency department if symptoms worsen or persist or if there are any questions or concerns that arise at home. Response to treatment: the patient's symptoms have markedly improved after treatment, and as a result, I will discharge patient. Special discussion: Based on the patient's Hx, exam, and Dx evaluation, there is no indication for emergent surgery or inpatient Tx. It is understood by the patient/guardian that if the Sx's persist or worsen they need to return immediately for re-evaluation. 12/15 16:06 Order name: Basic Metabolic Panel; Complete Time: 17:04 cp 12/15 17:04 Interpretation: Normal except: CL 108; CRE 0.46. cp 12/15 16:06 Order name: CBC with Diff cp 12/15 16:47 Interpretation: Normal except: WBC 13.20; HGB 10.6; HCT 32.8; MCV 70.5; MCH 22.8; RDW cp 17.9; JOSEPH% 88.9; LYM% 5.5. 12/15 16:06 Order name: Hepatic Function; Complete Time: 17:04 cp 12/15 17:05 Interpretation: Normal except: GLOB 4.3; A/G 0.9. cp 12/15 16:06 Order name: Lipase; Complete Time: 17:04 cp 12/15 16:06 Order name: Urine Microscopic Only; Complete Time: 17:04 12/15 17:05 Interpretation: Normal except: UWBC 5-10; URBC 5-10; UBACT 20-50. 12/15 16:20 Order name: Urine Dipstick-Ancillary; Complete Time: 16:47 EDSC 12/15 16:30 Order name: Urine --Ancillary (enter results); Complete Time: 16:47 eb 12/15 16:48 Order name: CT Abd/Pelvis - IV Contrast Only; Complete Time: 17:36 12/15 17:36 Interpretation: Report reviewed. 12/15 16:49 Order name: Urine Culture EDSC 12/15 17:40 Order name: GC (GONORR/CHLAMYDIA) Probe 12/15 17:40 Order name: Wet Prep 12/15 17:41 Order name: US Transvaginal Study (Probe); Complete Time: 18:57 cp 12/15 16:06 Order name: IV Saline Lock; Complete Time: 16:27 cp 12/15 16:06 Order name: Labs collected and sent; Complete Time: 16:27 cp 12/15 16:06 Order name: Urine Dipstick-Ancillary (obtain specimen); Complete Time: 16:27 cp 12/15 16:06 Order name: Urine Test (obtain specimen); Complete Time: 16:27 cp 12/15 17:40 Order name: Pelvic Exam Setup; Complete Time: 19:02 cp Administered Medications: 16:35 Drug: morphine 2 mg {Note: Rass 0.} Route: IVP; Site: right antecubital; es2 17:08 Follow up: Response: No adverse reaction es2 16:35 Drug: NS 0.9% 1000 ml Route: IV; Rate: 1 bolus; Site: right antecubital; es2 17:08 Follow up: Response: No adverse reaction es2 17:25 Drug: Rocephin (cefTRIAXone) 1 grams Route: IV; Rate: calculated rate; Site: right es2 antecubital; 17:42 Drug: morphine 2 mg {Note: Rass 0.} Route: IVP; Site: right antecubital; es2 17:43 Follow up: Response: No adverse reaction es2 18:00 Drug: Ketorolac 15 mg Route: IVP; Site: right antecubital; es2 Disposition: 19:15 Chart complete. cp Disposition Summary: 12/15/20 19:00 Discharge Ordered Problem: new cp Symptoms: have improved cp Condition: Stable cp Location: Home(12/15/20 19:34) wr Diagnosis - Female pelvic inflammatory disease, unspecified cp Followup: cp - With: Private Physician - When: 2 - 3 days - Reason: Recheck today's complaints Discharge Instructions: - Discharge Summary Sheet cp - Pelvic Inflammatory Disease cp Forms: - Medication Reconciliation Form cp - Thank You Letter cp - Antibiotic Education cp - Prescription Opioid Use cp Prescriptions: - Naprosyn 500 mg Oral Tablet - take 1 tablet by ORAL route 2 times per day take with food; 20 tablet; Refills: cp 0, Product Selection Permitted - Doxycycline Hyclate 100 mg Oral Tablet - take 1 tablet by ORAL route every 12 hours; 20 tablet; Refills: 0, Product cp Selection Permitted - Metronidazole 500 mg Oral Tablet - take 1 tablet by ORAL route every 8 hours; 30 tablet; Refills: 0, Product cp Selection Permitted Signatures: Dispatcher [employer] EDMS Adalberto Rushing PA PA cp Baxter, Heather, RN RN hb Robinson, Willena wr Smith, Elizabeth, RN RN es2 Corrections: (The following items were deleted from the chart) 19:01 19:00 Lower abdominal pain, unspecified cp cp 19:34 19:00 Home cp wr
--- NOTE | 2020-12-15 19:00 | ER ---
Nurse's Notes [facility] Name: Chelsy Riddle Age: 25 yrs Sex: Female : 1995 Arrival Date: 12/15/2020 Time: 15:53 Bed 12 Private MD: Diagnosis: Female pelvic inflammatory disease, unspecified Presentation: 12/15 15:56 Chief complaint: Sudden sharp right sided abdominal pain that woke her from sleep last hb night. Coronavirus screen: At this time, the client does not indicate any symptoms associated with coronavirus-19. Ebola Screen: No symptoms or risks identified at this time. Initial Sepsis Screen:. Risk Assessment: Do you want to hurt yourself or someone else? Patient reports no desire to harm self or others. Onset of symptoms was December 15, 2020. 15:56 Method Of Arrival: Ambulatory hb 15:56 Acuity: JOSEPH 3 hb 16:10 Initial Sepsis Screen: Does the patient meet any 2 criteria? No. Patient's initial es2 sepsis screen is negative. Does the patient have a suspected source of infection? No. Patient's initial sepsis screen is negative. 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 - Social history:: Smoking status: Patient denies any tobacco usage or history of. Screenin:11 Abuse screen: Denies threats or abuse. Denies injuries from another. Nutritional es2 screening: No deficits noted. Tuberculosis screening: No symptoms or risk factors identified. Fall Risk None identified. Mental Status- Oriented to own ability (0 pts). Assessment: 16:09 Reassessment: Patient and/or family updated on plan of care and expected duration. Pain es2 level reassessed. Patient is alert, oriented x 3, equal unlabored respirations, skin warm/dry/pink. General: Appears uncomfortable, well groomed, well developed, well nourished, Behavior is calm, cooperative, appropriate for age. Pain: Complains of pain in abdomen Pain currently is 10 out of 10 on a pain scale. Neuro: Level of Consciousness is awake, alert, obeys commands, Oriented to person, place, time, situation, Appropriate for age Speech is normal. Cardiovascular: Capillary refill < 3 seconds Patient's skin is warm and dry. Respiratory: Airway is patent Respiratory effort is even, unlabored, Respiratory pattern is regular, symmetrical. GI: Bowel sounds Abdomen is tender to palpation. :. EENT: No signs and/or symptoms were reported regarding the EENT system. Derm: No signs and/or symptoms reported regarding the dermatologic system. Musculoskeletal: No signs and/or symptoms reported regarding the musculoskeletal system. Vital Signs: 15:56 BP 127 / 90; Pulse 115; Resp 16; Temp 100.2(TE); Pulse Ox 100% on R/A; Weight 49.9 kg; hb Height 5 ft. 2 in. (157.48 cm); Pain 10/10; 16:35 BP 118 / 71; Pulse 99; Resp 17; Pulse Ox 100% on R/A; es2 19:32 BP 118 / 71; Pulse 99; Resp 18; Temp 99; Pulse Ox 100% ; wr 15:56 Body Mass Index 20.12 (49.90 kg, 157.48 cm) hb ED Course: 15:53 Patient arrived in ED. mr 15:57 Triage completed. hb 15:57 Arm band placed on. hb 16:00 Adalberto Rushing PA is PHCP. cp 16:00 Nancy Evans MD is Attending Physician. cp 16:05 Mariposa Panda, DOMENIC is Primary Nurse. es2 16:10 Patient has correct armband on for positive identification. Bed in low position. es2 16:11 No provider procedures requiring assistance completed. es2 16:27 Urine Microscopic Only Sent. es2 16:28 Basic Metabolic Panel Sent. es2 16:28 CBC with Diff Sent. es2 16:28 Hepatic Function Sent. es2 16:28 Lipase Sent. es2 16:28 Inserted saline lock: 20 gauge in right antecubital area, using aseptic technique. es2 Blood collected. 16:34 Urine --Ancillary (enter results) Sent. es2 17:08 Urine Culture Sent. es2 17:25 CT Abd/Pelvis - IV Contrast Only In Process Unspecified. EDMS 18:30 US Transvaginal Study (Probe) In Process Unspecified. EDMS Administered Medications: 16:35 Drug: morphine 2 mg {Note: Rass 0.} Route: IVP; Site: right antecubital; es2 17:08 Follow up: Response: No adverse reaction es2 16:35 Drug: NS 0.9% 1000 ml Route: IV; Rate: 1 bolus; Site: right antecubital; es2 17:08 Follow up: Response: No adverse reaction es2 17:25 Drug: Rocephin (cefTRIAXone) 1 grams Route: IV; Rate: calculated rate; Site: right es2 antecubital; 17:42 Drug: morphine 2 mg {Note: Rass 0.} Route: IVP; Site: right antecubital; es2 17:43 Follow up: Response: No adverse reaction es2 18:00 Drug: Ketorolac 15 mg Route: IVP; Site: right antecubital; es2 Outcome: 19:00 Discharge ordered by MD. gonzalez 19:34 Patient left the ED. wr Signatures: Dispatcher [employer] EDTori Recinos Corey, PA PA cp Baxter, Heather, RN RN hb Robinson, Willena wr Smith, Elizabeth, RN RN es2
[2020-12-15 19:35] LABS: Blood Morphology Comment NOT SEEN (NOT SEEN); Platelet Estimate ADEQ; White Blood Cell Scan OK (OK)
[2020-12-15 19:46] VITALS: O2SAT 100
[2020-12-15 19:47] VITALS: BP 118/71
[2020-12-15 19:49] VITALS: TEMP 99
[2020-12-19 14:03] LABS: C.trachomatis RNA,TMA Not Detected (Not Detected)
== END 2020-12-15 19:34 | disposition home or self-care (01) ==
LOC: ER 15:51
DX: N73.9 Female pelvic inflammatory disease, unspecified (principal)
CPT/HCPCS: 36415; 74177; 76830; 80048; 80076; 81003; 81015; 81025; 83690; 85025; 87077; 87086; 87088; 87186; 87210; 87490; 87590; 96374; 96375; 99284; J2270; J7030; Q9967

== ENCOUNTER 2020-12-17 18:46 | Emergency (ER) | payer SELFPAY ==
[2020-12-17 19:54] LABS: Urine Blood 1+ (Negative); Urine Glucose Negative (Negative); Urine Protein Negative (Negative); Urine Specific Gravity >=1.030 (1.005-1.030)
[2020-12-17 20:01] LABS: Urine Specific Gravity/Preg >1.030 (1.005-1.030)
[2020-12-17] MEDS ORDERED: MORPHINE 4 MG/ML SYR ONE (20:10)
[2020-12-17] MEDS ORDERED: NA CHLORIDE 0.9% 1,000 ML ONE (20:11)
[2020-12-17] MEDS ORDERED: ONDANSETRON 4 MG/2 ML VIAL ONE ×2 (20:11→20:28)
[2020-12-17] MEDS ORDERED: FENTANYL CITR 100 MCG/2 ML ONE (20:27)
[2020-12-17 20:46] LABS: Absolute Lymphocytes (CBC) 1.4 K/uL (0.7-4.9); Basophils % 0.5 % (0-1.3); Hematocrit 30.6 % (36.0-45.0); MPV 8.6 fL (7.6-11.3)
[2020-12-17 20:56] LABS: ALT/SGPT 19 U/L (12-78); AST/SGOT 7 U/L (15-37); Albumin 3.8 g/dL (3.4-5.0); Alkaline Phosphatase 76 U/L (45-117); BUN Blood Urea Nitrogen 12 mg/dL (7-18); Bicarbonate 27 mmol/L (21-32); Bilirubin Direct < 0.1 mg/dL (0-0.2); Bilirubin Total 0.3 mg/dL (0.2-1.0); Glucose Level 97 mg/dL (74-106); Lipase 157 U/L (73-393); Potassium 3.5 mmol/L (3.5-5.1); Protein, Total 7.4 g/dL (6.4-8.2); Sodium Level 141 mmol/L (136-145)
--- NOTE | 2020-12-17 21:30 | RAD REPORT ---
EXAM DESCRIPTION: CTAbdomen Pelvis W Contrast - 12/17/2020 9:21 pm CLINICAL HISTORY: . ABD PAIN COMPARISON: Abdomen Pelvis W Contrast dated 12/15/2020 TECHNIQUE: Biphasic CT imaging of the abdomen and pelvis was performed with 100 ml non-ionic IV cont rast. All CT scans are performed using dose optimization technique as appropriate and may include automated exposure control or mA/KV adjustment according to patient size. FINDINGS: Lower chest: No acute abnormality. Liver: No acute abnormality or suspicious lesions. Biliary: No biliary ductal dilatation. Stomach: No significant focal abnormality. Duodenum: No significant focal abnormality. Pancreas: No significant abnormality. Spleen: No significant abnormality. Adrenal: No suspicious lesions. Kidney/ureter: No hydronephrosis. No renal calculi. Retroperitoneum: No retroperitoneal adenopathy. Vascular: No aneurysm. Bowel: No significant focal abnormality. Normal appendix. Peritoneum: No ascites or free air. Bladder: Grossly unremarkable. Reproductive: No adnexal masses. Bones: No acute fracture. Other: n/a IMPRESSION: No acute intra-abdominal or pelvic finding.
--- NOTE | 2020-12-17 21:50 | ER ---
Nurse's Notes [facility] Name: Chelsy Riddle Age: 25 yrs Sex: Female : 1995 Arrival Date: 12/17/2020 Time: 18:51 Bed 19 Private MD: Diagnosis: Abdominal pain, unspecified;Pelvic and perineal pain;UTI/ Urinary tract infection, site not specified Presentation: 12/17 18:55 Chief complaint: Seen in ED 2 days ago for RLQ pain, reports pain has become severe + hb nausea. Coronavirus screen: At this time, the client does not indicate any symptoms associated with coronavirus-19. Ebola Screen: No symptoms or risks identified at this time. Initial Sepsis Screen: Does the patient meet any 2 criteria? No. Patient's initial sepsis screen is negative. Does the patient have a suspected source of infection? No. Patient's initial sepsis screen is negative. Risk Assessment: Do you want to hurt yourself or someone else? Patient reports no desire to harm self or others. Onset of symptoms was December 15, 2020. 18:55 Method Of Arrival: Ambulatory hb 18:55 Acuity: JOSEPH 3 hb Triage Assessment: 20:15 General: Appears uncomfortable, Behavior is calm, cooperative, appropriate for age. 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 - Social history:: Smoking status: Patient denies any tobacco usage or history of. Screenin:15 Abuse screen: Denies threats or abuse. Denies injuries from another. Nutritional bc5 screening: No deficits noted. Tuberculosis screening: No symptoms or risk factors identified. Fall Risk None identified. No fall in past 12 months (0 pts). No secondary diagnosis (0 pts). IV access (20 points). Ambulatory Aid- None/Bed Rest/Nurse Assist (0 pts). Gait- Normal/Bed Rest/Wheelchair (0 pts) Mental Status- Oriented to own ability (0 pts). Total Skelton Fall Scale indicates No Risk (0-24 pts). Assessment: 19:58 Reassessment: pt reports allergy to morphine, reports having itching/rash, Dr. Simpson em notified, received VO for fentanyl. 20:10 Reassessment: Initial contact. Pt c/o worsening LRQ pain and nausea, Pt states she was bc5 here 2 days ago and was told to come back if pain got worse "I was taking the medications they gave me and it didn't work" Pt was informed morphine was ordered or her "They gave that too me 2 days ago and I broke out in a rash and was itchy I told the nurse but it went away". aware and changed pain medication. A\\T\\O x 3, RR is even and unlabored, speaking in clear and complete sentences at this time. Pain: Complains of pain in abdomen. GI: Bowel sounds present X 4 quads. Abdomen is tender to palpation in suprapubic area and right lower quadrant. Vital Signs: 18:55 BP 138 / 83; Pulse 92; Resp 20; Temp 98.7(O); Pulse Ox 100% on R/A; Weight 49.9 kg; hb Height 5 ft. 2 in. (157.48 cm); Pain 10/10; 20:00 BP 131 / 78; Pulse 79; Resp 16; Pulse Ox 100% on R/A; Pain 7/10; bc5 22:54 BP 132 / 74; Pulse 71; Resp 16; Temp 98.5(O); Pulse Ox 100% on R/A; Pain 0/10; bc5 18:55 Body Mass Index 20.12 (49.90 kg, 157.48 cm) hb ED Course: 18:51 Patient arrived in ED. mr 18:56 Triage completed. hb 18:56 Arm band placed on. hb 19:18 Amna Weathers, RN is Primary Nurse. bc5 19:20 Adalberto Simpson MD is Attending Physician. bereket 20:05 Urine --Ancillary (enter results) Sent. bc5 20:15 No provider procedures requiring assistance completed. Inserted saline lock: 20 gauge bc5 in left antecubital area, using aseptic technique. 20:21 Patient has correct armband on for positive identification. Placed in gown. Bed in low bc5 position. Call light in reach. Side rails up X2. 21:21 CT Abd/Pelvis - IV Contrast Only In Process Unspecified. EDMS 21:50 Broderick Magaña MD is Referral Physician. bereket 22:55 IV discontinued, intact, bleeding controlled, No redness/swelling at site. Pressure bc5 dressing applied. Administered Medications: 20:01 Not Given (Physician Discretion): morphine 4 mg IVP once; RASS on ADMIN: Combtv4, Very em Agttd3, Agttd2, Rstlss1, AlertClm0, Drwsy-1, Lt Sdtn-2, Mod Sdtn-3, Dp Sdtn-4, UnArsble-5 20:05 Drug: NS 0.9% 1000 ml Route: IV; Rate: 1 bolus; Site: left antecubital; bc5 21:43 Follow up: IV Status: Completed infusion; IV Intake: 1000ml bc5 20:05 Drug: Zofran (Ondansetron) 4 mg Route: IVP; Site: left antecubital; bc5 21:43 Follow up: Response: Nausea is decreased bc5 20:05 Drug: fentaNYL (PF) 25 mcg Route: IVP; Site: left antecubital; bc5 21:43 Follow up: Response: Pain is decreased bc5 22:43 Drug: Rocephin (cefTRIAXone) 1 grams Route: IV; Rate: per protocol; Site: left bc5 antecubital; 22:49 Follow up: Response: Medication administered at discharge. bc5 22:43 Drug: Cipro (ciprofloxacin) 500 mg Route: PO; bc5 22:49 Follow up: Response: Medication administered at discharge. bc5 Intake: 21:43 IV: 1000ml; Total: 1000ml. bc5 Outcome: 21:50 Discharge ordered by . [facility] 22:55 Discharged to home ambulatory. 5 22:55 Condition: improved 22:55 Discharge instructions given to patient, Instructed on discharge instructions, follow up and referral plans. medication usage, Prescriptions given X 4. 22:55 Patient left the ED. 5 Signatures: Dispatcher [employer] Adalberto Gage MD MD cha Rivera, Bradley Torres RN RN em Baxter, Heather, RN RN Amna Weathers RN RN bc5 Corrections: (The following items were deleted from the chart) 21:42 18:56 Allergies: No Known Allergies; [facility]
--- NOTE | 2020-12-17 21:50 | EDPHYS ---
Physician Documentation [facility] Name: Chelsy Riddle Age: 25 yrs Sex: Female : 1995 Arrival Date: 12/17/2020 Time: 18:51 Bed 19 Private MD: ED Physician Adalberto Simpson HPI: 12/17 20:24 This 25 yrs old Female presents to ER via Ambulatory with complaints of bereket Abdominal Pain. 20:24 The patient presents with pain that is acute, with no known mechanism of injury. 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 - Social history:: Smoking status: Patient denies any tobacco usage or history of. ROS: 20:24 Constitutional: Negative for fever, chills, and weight loss, Eyes: Negative for injury, bereket pain, redness, and discharge, ENT: Negative for injury, pain, and discharge, Neck: Negative for injury, pain, and swelling, Cardiovascular: Negative for chest pain, palpitations, and edema, Respiratory: Negative for shortness of breath, cough, wheezing, and pleuritic chest pain, Back: Negative for injury and pain, : Negative for injury, bleeding, discharge, and swelling, MS/Extremity: Negative for injury and deformity, Skin: Negative for injury, rash, and discoloration, Neuro: Negative for headache, weakness, numbness, tingling, and seizure, Psych: Negative for depression, anxiety, suicide ideation, homicidal ideation, and hallucinations, Allergy/Immunology: Negative for hives, rash, and allergies, Endocrine: Negative for neck swelling, polydipsia, polyuria, polyphagia, and marked weight changes, Hematologic/Lymphatic: Negative for swollen nodes, abnormal bleeding, and unusual bruising. 20:24 Abdomen/GI: Positive for abdominal pain, of the right upper quadrant, left upper quadrant, right lower quadrant and left lower quadrant. Exam: 20:24 Constitutional: This is a well developed, well nourished patient who is awake, alert, bereket and in no acute distress. Head/Face: Normocephalic, atraumatic. Eyes: Pupils equal round and reactive to light, extra-ocular motions intact. Lids and lashes normal. Conjunctiva and sclera are non-icteric and not injected. Cornea within normal limits. Periorbital areas with no swelling, redness, or edema. ENT: Nares patent. No nasal discharge, no septal abnormalities noted. Tympanic membranes are normal and external auditory canals are clear. Oropharynx with no redness, swelling, or masses, exudates, or evidence of obstruction, uvula midline. Mucous membranes moist. Neck: Trachea midline, no thyromegaly or masses palpated, and no cervical lymphadenopathy. Supple, full range of motion without nuchal rigidity, or vertebral point tenderness. No Meningismus. Chest/axilla: Normal chest wall appearance and motion. Nontender with no deformity. No lesions are appreciated. Cardiovascular: Regular rate and rhythm with a normal S1 and S2. No gallops, murmurs, or rubs. Normal PMI, no JVD. No pulse deficits. Respiratory: Lungs have equal breath sounds bilaterally, clear to auscultation and percussion. No rales, rhonchi or wheezes noted. No increased work of breathing, no retractions or nasal flaring. Back: No spinal tenderness. No costovertebral tenderness. Full range of motion. Skin: Warm, dry with normal turgor. Normal color with no rashes, no lesions, and no evidence of cellulitis. MS/ Extremity: Pulses equal, no cyanosis. Neurovascular intact. Full, normal range of motion. Neuro: Awake and alert, GCS 15, oriented to person, place, time, and situation. Cranial nerves II-XII grossly intact. Motor strength 5/5 in all extremities. Sensory grossly intact. Cerebellar exam normal. Normal gait. Psych: Awake, alert, with orientation to person, place and time. Behavior, mood, and affect are within normal limits. 20:24 Abdomen/GI: Inspection: abdomen appears normal, Bowel sounds: normal, Palpation: moderate abdominal tenderness, in the right upper quadrant, left upper quadrant, right lower quadrant and left lower quadrant, Liver: no appreciated palpable abnormalities, Hernia: not appreciated. Vital Signs: 18:55 BP 138 / 83; Pulse 92; Resp 20; Temp 98.7(O); Pulse Ox 100% on R/A; Weight 49.9 kg; hb Height 5 ft. 2 in. (157.48 cm); Pain 10/10; 20:00 BP 131 / 78; Pulse 79; Resp 16; Pulse Ox 100% on R/A; Pain 7/10; bc5 22:54 BP 132 / 74; Pulse 71; Resp 16; Temp 98.5(O); Pulse Ox 100% on R/A; Pain 0/10; bc5 18:55 Body Mass Index 20.12 (49.90 kg, 157.48 cm) hb MDM: 19:20 Patient medically screened. bereket 21:48 Differential diagnosis: appendicitis, bowel obstruction, cholecystitis, Cholelithiasis, bereket diverticulitis, Dysmenorrhea, Ectopic , gastroesophageal reflux disease, non-specific abd pain, pancreatitis, Peptic Ulcer Disease, Pyelonephritis, Ureterolithiasis, urinary tract infection. Data reviewed: vital signs, nurses notes, lab test result(s), radiologic studies, CT scan, ultrasound. 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 Test interpretation: by ED physician or midlevel provider:. Counseling: I had a detailed discussion with the patient and/or guardian regarding: the historical points, exam findings, and any diagnostic results supporting the discharge/admit diagnosis, lab results, radiology results, the need for outpatient follow up, for definitive care, a family practitioner, an OB/Gyne specialist. 12/17 19:24 Order name: Basic Metabolic Panel; Complete Time: 21:07 bereket 12/17 19:24 Order name: CBC with Diff; Complete Time: 21:07 bereket 12/17 19:24 Order name: Hepatic Function; Complete Time: 21:07 bereket 12/17 19:24 Order name: Lipase; Complete Time: 21:07 bereket 12/17 19:54 Order name: Urine Dipstick-Ancillary; Complete Time: 21:07 EDMS 12/17 19:25 Order name: CT Abd/Pelvis - IV Contrast Only; Complete Time: 21:47 bereket 12/17 19:54 Order name: Urine --Ancillary (enter results) tt3 12/17 19:55 Order name: Urine --Ancillary; Complete Time: 21:07 EDAR 12/17 19:24 Order name: IV Saline Lock; Complete Time: 20:05 [facility] 12/17 19:24 Order name: Labs collected and sent; Complete Time: 20:05 [facility] 12/17 19:24 Order name: Urine Dipstick-Ancillary (obtain specimen); Complete Time: 20:05 [facility] 12/17 19:24 Order name: Urine Test (obtain specimen) bereket Administered Medications: 20:01 Not Given (Physician Discretion): morphine 4 mg IVP once; RASS on ADMIN: Combtv4, Very em Agttd3, Agttd2, Rstlss1, AlertClm0, Drwsy-1, Lt Sdtn-2, Mod Sdtn-3, Dp Sdtn-4, UnArsble-5 20:05 Drug: NS 0.9% 1000 ml Route: IV; Rate: 1 bolus; Site: left antecubital; bc5 21:43 Follow up: IV Status: Completed infusion; IV Intake: 1000ml 5 20:05 Drug: Zofran (Ondansetron) 4 mg Route: IVP; Site: left antecubital; bc5 21:43 Follow up: Response: Nausea is decreased 5 20:05 Drug: fentaNYL (PF) 25 mcg Route: IVP; Site: left antecubital; bc5 21:43 Follow up: Response: Pain is decreased bc5 22:43 Drug: Rocephin (cefTRIAXone) 1 grams Route: IV; Rate: per protocol; Site: left 5 antecubital; 22:49 Follow up: Response: Medication administered at discharge. bc5 22:43 Drug: Cipro (ciprofloxacin) 500 mg Route: PO; bc5 22:49 Follow up: Response: Medication administered at discharge. 5 Disposition Summary: 12/17/20 21:50 Discharge Ordered Location: Home bereket Problem: new bereket Symptoms: have improved bereket Condition: Stable berekte Diagnosis - Abdominal pain, unspecified bereket - Pelvic and perineal pain bereket - UTI/ Urinary tract infection, site not specified bereket Followup: bereket - With: Private Physician - When: 2 - 3 days - Reason: Recheck today's complaints, Continuance of care, Re-evaluation by your physician Followup: bereket - With: Broderick Magaña MD - When: 2 - 3 days - Reason: Recheck today's complaints, Re-evaluation by your physician Discharge Instructions: - Discharge Summary Sheet bereket - Abdominal Pain, Adult bereket - Pelvic Pain, Female bereket - Urinary Tract Infection, Adult bereket - Urinary Tract Infection, Adult, [id number] [facility] Forms: - Medication Reconciliation Form bereket - Thank You Letter bereket - Antibiotic Education [facility] - Prescription Opioid Use [facility] Prescriptions: - Aspirin Low Dose - take 1 tablet by ORAL route once daily; 30 tablet; Refills: 0, Product [facility] Selection Permitted - Zofran 4 mg Oral Tablet - take 1 tablet by ORAL route every 12 hours As needed; 20 tablet; Refills: 0, [facility] Product Selection Permitted - Motrin IB 200 mg Oral Tablet - take 2 tablet by ORAL route every 6 hours As needed as needed with food; 30 bereket tablet; Refills: 0, Product Selection Permitted - dicyclomine 20 mg Oral Tablet - take 1 tablet by ORAL route 4 times per day; 28 tablet; Refills: 0, Product [facility] Selection Permitted - Cipro 250 mg Oral Tablet - take 1 tablet by ORAL route every 12 hours; 14 tablet; Refills: 0, Product [facility] Selection Permitted Signatures: Dispatcher [employer] Adalberto Gage MD MD cha Munoz, Edgar RN Jesusita Stoddard RN RN Amna Weathers RN RN bc5 Corrections: (The following items were deleted from the chart) 21:42 18:56 Allergies: No Known Allergies; bc5
[2020-12-17] MEDS ORDERED: CIPROFLOXACIN HCL 500 MG TAB ONE (22:57)
[2020-12-17] MEDS ORDERED: CEFTRIAXONE 1000 MG/VIAL ONE (22:57)
[2020-12-17 22:59] VITALS: O2SAT 100
[2020-12-17 23:02] VITALS: BP 132/74; TEMP 98.5
--- NOTE | 2020-12-18 18:17 | EKG ---
Test Date: 2020-12-15 Test Time: 16:51:36 Futures Trader: DONNA MEASUREMENT RESULTS: Intervals: Rate: 103 MI: 142 QRSD: 80 QT: 332 QTc: 434 [place]: P: 58 MI: 142 QRS: 73 T: 4 INTERPRETIVE STATEMENTS: Sinus tachycardia T wave abnormality, consider inferior ischemia Abnormal ECG Compared to ECG 06/12/2019 19:46:29 T-wave abnormality now present Possible ischemia now present Sinus rhythm no longer present Electronically Signed On 12-18-20 18:06:50 CDT by Alen Beckman
== END 2020-12-17 22:55 | disposition home or self-care (01) ==
LOC: ER 18:46
DX: N39.0 Urinary tract infection, site not specified (principal); R10.2 Pelvic and perineal pain; Z88.5 Allergy status to narcotic agent
CPT/HCPCS: 36415; 74177; 80048; 80076; 81003; 81025; 83690; 85025; 93005; 96361; 96374; 96375; 99284; J2405; J3010; J7030; Q9967

== ENCOUNTER 2021-02-04 10:22 | Emergency (ER) | payer SELFPAY ==
--- OUTSIDE RECORDS SUMMARY | 2021-02-04 10:25 | XMS REPORT | Continuity of Care Document ---
:1995 Author Organization [facility] t Address [address] [place] [address] Dr. Garza [address] [place] [id number] Care Team Providers Name Role Phone Unavailable Unavailable Unavailable Problems This patient has no known problems. Allergies, Adverse Reactions, Alerts This patient has no known allergies or adverse reactions. Medications This patient has no known medications. Procedures This patient has no known procedures. Results This patient has no known results.
--- NOTE | 2021-02-04 10:51 | EDPHYS ---
Physician Documentation [facility] Name: Chelsy Riddle Age: 25 yrs Sex: Female : 1995 Arrival Date: 02/04/2021 Time: 10:26 Bed Waiting Private MD: ED Physician Dwight Hilton HPI: 02/04 10:56 This 25 yrs old Female presents to ER via Ambulatory with complaints of Facial kb Swelling, Mouth Problem. 10:56 The patient presents with pain, redness, swelling. The problem is located in the upper kb right second bicuspid (#4) and upper right first molar (#3) and upper right second molar (#2). Onset: The symptoms/episode began/occurred last night. Duration: The symptoms are continuous. Modifying factors: The symptoms are alleviated by nothing, the symptoms are aggravated by nothing. Associated signs and symptoms: Pertinent positives: pain, redness in area, swelling, Pertinent negatives: anorexia, chills, dysphagia, fever, inability to eat, nausea, vomiting. Severity of symptoms: At their worst the symptoms were moderate, in the emergency department the symptoms are unchanged. The patient has not experienced similar symptoms in the past. The patient has not recently seen a physician. 10:57 Pt reports she woke up at 0130 and noticed swelling to right cheek. States she feels kb like there are fever blisters in her mouth on that side. 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 - Social history:: Smoking status: Patient denies any tobacco usage or history of. ROS: 10:54 Constitutional: Negative for fever, chills, and weight loss. kb 10:54 ENT: Positive for dental pain, cheek swelling. 10:54 All other systems are negative. Exam: 10:54 Constitutional: This is a well developed, well nourished patient who is awake, alert, kb and in no acute distress. Head/Face: Normocephalic, atraumatic. Respiratory: Respirations even and unlabored. No increased work of breathing, no retractions or nasal flaring. Skin: Warm, dry with normal turgor. Normal color. MS/ Extremity: Pulses equal, no cyanosis. Neurovascular intact. Full, normal range of motion. Neuro: Awake and alert, GCS 15, oriented to person, place, time, and situation. Moves all extremities. Normal gait. Psych: Awake, alert, with orientation to person, place and time. Behavior, mood, and affect are within normal limits. 10:54 ENT: Dental exam: gum swelling, that is mild, that is moderate, specifically in the upper right second molar (#2), upper right first molar (#3) and upper right second bicuspid (#4), pain, that is moderate, specifically in the upper right second molar (#2), upper right first molar (#3) and upper right second bicuspid (#4), redness to gums . Vital Signs: 10:44 BP 129 / 93; Pulse 96; Resp 18 S; Temp 98.4(TE); Pulse Ox 100% on R/A; Weight 54.43 kg aa5 (R); Height 5 ft. 2 in. (157.48 cm) (R); 10:44 Body Mass Index 21.95 (54.43 kg, 157.48 cm) aa5 MDM: 10:49 Patient medically screened. kb 10:54 Data reviewed: vital signs, nurses notes. Data interpreted: Pulse oximetry: on room air kb is 100 %. Interpretation: normal. Counseling: I had a detailed discussion with the patient and/or guardian regarding: the historical points, exam findings, and any diagnostic results supporting the discharge/admit diagnosis, the need for outpatient follow up, a dentist, to return to the emergency department if symptoms worsen or persist or if there are any questions or concerns that arise at home. Administered Medications: No medications were administered Disposition: 13:38 Co-signature as Attending Physician, Dwight Hilton MD I agree with the assessment and kdr plan of care. Disposition Summary: 02/04/21 10:50 Discharge Ordered Location: Home kb Condition: Stable kb Diagnosis - Other specified disorders of teeth and supporting structures kb Followup: kb - With: Private Physician - When: 2 - 3 days - Reason: Recheck today's complaints, Continuance of care, Re-evaluation by your physician Followup: kb - With: Emergency Department - When: As needed - Reason: Worsening of condition Discharge Instructions: - Discharge Summary Sheet kb - Dental Pain, [id number] kb - Dental Abscess, [id number]-[id number] kb Forms: - Medication Reconciliation Form kb - Thank You Letter kb - Antibiotic Education kb - Prescription Opioid Use kb - Work release form iw Prescriptions: - Augmentin 875-125 mg Oral Tablet - take 1 tablet by ORAL route every 12 hours for 10 days; 20 tablet; Refills: 0, kb Product Selection Permitted - Diclofenac Sodium 75 mg Oral Tablet Sustained Release - take 1 tablet by ORAL route 2 times per day; 30 tablet; Refills: 0, Product kb Selection Permitted Signatures: Eden Thorne, SILVANOC Dwight Rosenbaum MD MD kdr Calderon, Audri RN RN aa5
--- NOTE | 2021-02-04 10:51 | ER ---
Nurse's Notes [facility] Name: Chelsy Riddle Age: 25 yrs Sex: Female : 1995 Arrival Date: 02/04/2021 Time: 10:26 Bed Waiting Private MD: Diagnosis: Other specified disorders of teeth and supporting structures Presentation: 02/04 10:44 Chief complaint: Patient states: swelling to right cheek that began today. Pt states "I aa5 am getting fever blisters inside my mouth". Coronavirus screen: At this time, the client does not indicate any symptoms associated with coronavirus-19. Ebola Screen: No symptoms or risks identified at this time. Initial Sepsis Screen: Does the patient meet any 2 criteria? No. Patient's initial sepsis screen is negative. Does the patient have a suspected source of infection? No. Patient's initial sepsis screen is negative. Risk Assessment: Do you want to hurt yourself or someone else? Patient reports no desire to harm self or others. Onset of symptoms was February 04, 2021. 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 - Social history:: Smoking status: Patient denies any tobacco usage or history of. Assessment: 10:55 Reassessment: Patient is alert, oriented x 3, equal unlabored respirations, skin aa5 warm/dry/pink. Vital Signs: 10:44 BP 129 / 93; Pulse 96; Resp 18 S; Temp 98.4(TE); Pulse Ox 100% on R/A; Weight 54.43 kg aa5 (R); Height 5 ft. 2 in. (157.48 cm) (R); 10:44 Body Mass Index 21.95 (54.43 kg, 157.48 cm) aa5 ED Course: 10:26 Patient arrived in ED. kc5 10:43 Arm band placed on. aa5 10:45 Triage completed. aa5 10:49 Eden Thorne FNP-C is PHCP. kb 10:49 Dwight Hilton MD is Attending Physician. kb 10:55 No provider procedures requiring assistance completed. Patient did not have IV access aa5 during this emergency room visit. Administered Medications: No medications were administered Outcome: 10:50 Discharge ordered by . kb 10:55 Discharged to home ambulatory. aa5 10:55 Condition: stable 10:55 Discharge instructions given to patient, Instructed on discharge instructions, follow up and referral plans. medication usage, Demonstrated understanding of instructions, follow-up care, medications, Prescriptions given X 2. 10:58 Patient left the ED. aa5 Signatures: Eden Thorne, DIE TROUBLE SHOOTER-C DIE TROUBLE SHOOTER-Wendy Ventura, RN RN aa5 Lyudmila Zambrano5
[2021-02-04 11:03] VITALS: BP 129/93; TEMP 98.4; O2SAT 100
== END 2021-02-04 10:58 | disposition home or self-care (01) ==
LOC: ER 10:22
DX: K08.89 Other specified disorders of teeth and supporting structures (principal); Z88.5 Allergy status to narcotic agent
CPT/HCPCS: 99282

== ENCOUNTER 2021-09-12 09:02 | Emergency (ER) | payer SELFPAY ==
[2021-09-12] MEDS ORDERED: NA CHLORIDE 0.9% 1,000 ML ONE (10:12)
[2021-09-12] MEDS ORDERED: FAMOTIDINE 20 MG/2 ML VIAL IV ONE (10:12)
[2021-09-12] MEDS ORDERED: ONDANSETRON 4 MG/2 ML VIAL ONE (10:12)
[2021-09-12 10:26] LABS: Absolute Lymphocytes (CBC) 0.7 K/uL (0.7-4.9); Lymphocytes % 7.5 % (15.3-44.8); MCV 71.9 fL (80-100); RBC Red Blood Cell Count 5.29 M/uL (3.86-4.86)
[2021-09-12 10:49] LABS: Bilirubin Total 0.3 mg/dL (0.2-1.0); Potassium 3.9 mmol/L (3.5-5.1)
[2021-09-12] MEDS ORDERED: ACETAMINOPHEN 500 MG TAB ONE (11:38)
[2021-09-12 11:48] LABS: Urine Blood Trace-intact (Negative); Urine Glucose Negative (Negative); Urine Protein Negative (Negative)
[2021-09-12 12:05] LABS: Urine Bacteria 20-50 /HPF (<20); Urine RBC <5 /HPF (NONE SEEN); Urine Trichomonas PRESENT (NONE SEEN)
[2021-09-12] MEDS ORDERED: NA CHLORIDE 0.9% 50 ML ONE (12:41)
[2021-09-12] MEDS ORDERED: CEFTRIAXONE 1000 MG/VIAL ONE (12:41)
[2021-09-12] MEDS ORDERED: metroNIDAZOLE 500 MG TABLET ONE (12:41)
[2021-09-12 12:44] LABS: Barbiturates NEGATIVE (NEGATIVE); Benzodiazepines NEGATIVE (NEGATIVE); Cocaine NEGATIVE (NEGATIVE); METHAMPHETAM NEGATIVE (NEGATIVE); Methadone NEGATIVE (NEGATIVE); Opiates NEGATIVE (NEGATIVE); Phencyclidine NEGATIVE (NEGATIVE); THC Cannibis POSITIVE (NEGATIVE)
--- NOTE | 2021-09-12 13:36 | EDPHYS ---
Physician Documentation [facility] Name: Chelsy Riddle Age: 26 yrs Sex: Female : 1995 Arrival Date: 09/12/2021 Time: 09:08 Bed 20 Private MD: ED Physician Adalberto Simpson HPI: 09/12 09:38 This 26 yrs old Female presents to ER via Ambulatory with complaints of cp Headache, Nausea/Vomiting, Chest Pain. 09:38 The patient presents to the emergency department with nausea, that is moderate, cp vomiting, that is intermittent. Onset: The symptoms/episode began/occurred this morning, about 0400. 09:38 Possible causes: unknown. cp 09:38 Associated signs and symptoms: Pertinent positives: chest pain, Pertinent negatives: cp abdominal pain, constipation, diarrhea, fever, GI bleeding. Severity of symptoms: in the emergency department the symptoms are unchanged despite home interventions. 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 - Social history:: Smoking status: Reported history of juuling and/or vaping. ROS: 09:40 Constitutional: Negative for body aches, chills, fever, poor PO intake. cp 09:40 Cardiovascular: Positive for chest pain, Negative for edema, palpitations. cp 09:40 Respiratory: Negative for cough. 09:40 Eyes: Negative for injury, pain, redness, and discharge. cp 09:40 ENT: Negative for drainage from ear(s), ear pain, sore throat, difficulty swallowing, cp difficulty handling secretions. 09:40 Abdomen/GI: Positive for nausea and vomiting, Negative for abdominal pain, diarrhea, constipation, hematemesis, black/tarry stool, rectal bleeding. 09:40 Back: Negative for pain at rest, pain with movement. 09:40 : Negative for urinary symptoms. 09:40 Neuro: Positive for headache, Negative for altered mental status, dizziness, numbness, weakness. 09:40 All other systems are negative. Exam: 09:45 Constitutional: The patient appears in no acute distress, alert, awake, cp non-diaphoretic, non-toxic, well developed, well nourished. 09:45 Head/Face: Normocephalic, atraumatic. cp 09:45 Eyes: Periorbital structures: appear normal, Pupils: equal, round, and reactive to light and accomodation, Extraocular movements: intact throughout, Conjunctiva: normal, no exudate, no injection, Sclera: no appreciated abnormality, Lids and lashes: appear normal, bilaterally. 09:45 ENT: External ear(s): are unremarkable, Nose: is normal, Mouth: Lips: moist, Oral mucosa: pink and intact, moist, Posterior pharynx: Airway: no evidence of obstruction, patent. 09:45 Neck: ROM/movement: is normal, is supple, without pain, no range of motions limitations, no meningismus. 09:45 Chest/axilla: Inspection: normal, Palpation: is normal, no crepitus, no tenderness. 09:45 Cardiovascular: Rate: normal, Rhythm: regular, Edema: is not appreciated, JVD: is not appreciated. 09:45 Respiratory: the patient does not display signs of respiratory distress, Respirations: normal, no use of accessory muscles, no retractions, labored breathing, is not present, Breath sounds: are clear throughout, no decreased breath sounds, no stridor, no wheezing. 09:45 Abdomen/GI: Inspection: abdomen appears normal, Bowel sounds: active, all quadrants, Palpation: abdomen is soft and non-tender, in all quadrants, rebound tenderness, is not appreciated, voluntary guarding, is not appreciated, involuntary guarding, is not appreciated. 09:45 Back: pain, is absent, ROM is normal. 09:45 Skin: cellulitis, is not appreciated, no rash present. 09:45 Neuro: Orientation: to person, place \T\ time. Mentation: is normal, Motor: moves all fours, strength is normal, Sensation: is normal. 11:40 ECG was reviewed by the Attending Physician. cp Vital Signs: 09:20 BP 120 / 83; Pulse 76; Resp 17; Temp 98.3; Pulse Ox 100% ; Weight 54.43 kg; Height 5 ap3 ft. 2 in. (157.48 cm); 13:31 BP 125 / 82; Pulse 69; Resp 17; Pulse Ox 100% ; adams 09:20 Body Mass Index 21.95 (54.43 kg, 157.48 cm) ap3 MDM: 09:32 Patient medically screened. bereket 10:00 Differential diagnosis: gastritis, cholecystitis, appendicitis, viral gastroenteritis, cp gastroenteritis, pulmonary embolism, cardiac arrythmia, electrolyte abnormality. 13:34 Data reviewed: vital signs, nurses notes, lab test result(s), EKG, radiologic studies, cp plain films. Test interpretation: by ED physician or midlevel provider: ECG, plain radiologic studies. 13:35 Counseling: I had a detailed discussion with the patient and/or guardian regarding: the cp historical points, exam findings, and any diagnostic results supporting the discharge/admit diagnosis, lab results, radiology results, to return to the emergency department if symptoms worsen or persist or if there are any questions or concerns that arise at home. 13:35 Response to treatment: the patient's symptoms have markedly improved after treatment, cp and as a result, I will discharge patient. Special discussion: Based on the patient's history, exam, and Dx evaluation, there is no indication for emergent intervention or inpatient Tx. It is understood by the patient/guardian that if the Sx's persist or worsen they need to return immediately for re-evaluation. 09/12 09:38 Order name: CBC with Diff; Complete Time: 11: 09/12 13:23 Interpretation: Normal except: RBC 5.29; MCV 71.9; MCH 23.3; RDW 16.5; JOSEPH% 87.2; LYM% cp 7.5; NEUT A 8.5. 09/12 09:38 Order name: CMP; Complete Time: 11:06 09/12 09:38 Order name: Lipase; Complete Time: 11:06 09/12 09:38 Order name: Urine Microscopic Only; Complete Time: 12:06 09/12 11:48 Order name: Urine Dipstick-Ancillary; Complete Time: 12:06 [facility] 09/12 11:49 Order name: Urine --Ancillary (enter results) 09/12 12:10 Order name: Urine Culture [facility] 09/12 12:16 Order name: Troponin High Sensitivity; Complete Time: 13:23 09/12 12:16 Order name: D-Dimer; Complete Time: 13:23 09/12 12:22 Order name: UDS; Complete Time: 12:50 cp 09/12 13:24 Order name: XRAY Chest (1 view) cp 09/12 09:32 Order name: EKG; Complete Time: 09:33 cp 09/12 09:32 Order name: EKG - Nurse/Tech; Complete Time: 11:38 cp 09/12 09:38 Order name: IV Saline Lock; Complete Time: 10:19 cp 09/12 09:38 Order name: Labs collected and sent; Complete Time: 10:19 cp 09/12 09:38 Order name: Urine Dipstick-Ancillary (obtain specimen); Complete Time: 11:51 cp 09/12 09:38 Order name: Urine Test (obtain specimen); Complete Time: 11:51 cp 09/12 11:18 Order name: PO challenge cp EC:40 Rate is 73 beats/min. Rhythm is regular. ID interval is normal. QRS interval is normal. cp QT interval is normal. T waves are Inverted in leads III, aVR, V3. Interpreted by me. Reviewed by me. Administered Medications: 10:19 Drug: NS 0.9% 1000 ml Route: IV; Rate: 1 bolus; Site: right antecubital; adams 10:20 Drug: Pepcid (famotidine) 20 mg Route: IVP; Site: right antecubital; adams 11:23 Follow up: Response: No adverse reaction adams 10:20 Drug: Zofran (Ondansetron) 4 mg Route: IVP; Site: right antecubital; adams 11:23 Follow up: Response: No adverse reaction adams 11:36 Drug: Tylenol 1000 mg Route: PO; adams 11:38 Follow up: Response: No adverse reaction adams 12:48 Drug: Rocephin - (cefTRIAXone) 1 grams Route: IVPB; Infused Over: 30 mins; Site: right adams antecubital; 12:48 Drug: metroNIDAZOLE 2 grams Route: PO; Disposition Summary: 09/12/21 13:36 Discharge Ordered Location: Home cp Problem: new cp Symptoms: have improved cp Condition: Stable cp Diagnosis - Nausea with vomiting, unspecified cp - Chest pain, unspecified cp - Headache cp - Trichomoniasis, unspecified cp - UTI/ Urinary tract infection, site not specified cp Followup: cp - With: Private Physician - When: 2 - 3 days - Reason: Recheck today's complaints Discharge Instructions: - Discharge Summary Sheet cp - Nonspecific Chest Pain, Adult cp - General Headache Without Cause cp - Nausea and Vomiting, Adult cp - Trichomoniasis cp - Urinary Tract Infection, Adult cp Forms: - Medication Reconciliation Form cp - Thank You Letter cp - Antibiotic Education cp - Prescription Opioid Use cp - Work release form adams Prescriptions: - Ibuprofen 600 mg Oral Tablet - take 1 tablet by ORAL route every 8 hours As needed take with food; 30 tablet; cp Refills: 0, Product Selection Permitted - Zofran 4 mg Oral Tablet - take 1 tablet by ORAL route every 12 hours As needed; 20 tablet; Refills: 0, cp Product Selection Permitted - Bactrim DS 800-160 mg Oral Tablet - take 1 tablet by ORAL route every 12 hours for 5 days; 10 tablet; Refills: 0, cp Product Selection Permitted Signatures: Dispatcher [employer] EDMS Adalberto Simpson MD MD cha Page, Corey, PA PA cp Prokisch, Amanda RN RN ap3 Montse-StageJesusita valadez RN RN Corrections: (The following items were deleted from the chart) 09:53 09:49 Constitutional: The patient appears alert, awake, non-diaphoretic, non-toxic, cp well developed, well nourished, in obvious distress, mildly distressed, cp 09:53 09:49 Head/Face: Normocephalic, atraumatic. cp cp 09:53 09:49 Eyes: Periorbital structures: appear normal, Conjunctiva: normal, no exudate, no cp injection, Sclera: no appreciated abnormality, Lids and lashes: appear normal, bilaterally, cp 09:53 09:49 ENT: External ear(s): are unremarkable, Ear canal(s): are normal, clear, TM's: cp dullness, bilaterally, Nose: is normal, Mouth: Lips: moist, Oral mucosa: pink and intact, moist, Posterior pharynx: Airway: no evidence of obstruction, patent, cp 09:53 09:49 Neck: ROM/movement: is normal, is supple, without pain, no range of motions cp limitations, no meningismus, cp 09:53 09:49 Chest/axilla: Inspection: normal, cp cp 09:53 09:49 Cardiovascular: Rate: tachycardic, Rhythm: irregular, Edema: ankle edema, that is cp very mild, JVD: is not appreciated, cp : 09:49 Respiratory: moderate respiratory distress is noted, Respirations: labored cp breathing, that is moderate, Breath sounds: decreased breath sounds, that are moderate, throughout, stridor, is not appreciated, wheezing: that is mild, is heard diffusely, cp :53 09:49 Abdomen/GI: Inspection: abdomen appears normal, Palpation: abdomen is soft and cp non-tender, in all quadrants, voluntary guarding, is not appreciated, involuntary guarding, is not appreciated, cp : 09:49 Back: pain, is absent, ROM is normal, cp cp : 09:49 Skin: cellulitis, is not appreciated, no rash present. cp cp :53 09:49 Neuro: Orientation: to person, place \T\ time. Mentation: is normal, Motor: moves cp all fours, strength is normal, Sensation: is normal, cp 09/13 11:54 06 09:38 Associated signs and symptoms: Pertinent negatives: abdominal pain, cp constipation, diarrhea, fever, GI bleeding, cp
--- NOTE | 2021-09-12 13:36 | ER ---
Nurse's Notes [facility] Name: Chelsy Riddle Age: 26 yrs Sex: Female : 1995 Arrival Date: 09/12/2021 Time: 09:08 Bed 20 Private MD: Diagnosis: Nausea with vomiting, unspecified;Chest pain, unspecified;Headache;Trichomoniasis, unspecified;UTI/ Urinary tract infection, site not specified Presentation: 09/12 09:20 Chief complaint: Patient states: she has been having a head ache, nausea and vomiting ap3 since 0430 this morning. patient also reports chills and fatigue. Coronavirus screen: Client presents with at least one sign or symptom that may indicate coronavirus-19. Ebola Screen: No symptoms or risks identified at this time. Initial Sepsis Screen: Does the patient meet any 2 criteria? No. Patient's initial sepsis screen is negative. Does the patient have a suspected source of infection? No. Patient's initial sepsis screen is negative. Risk Assessment: Do you want to hurt yourself or someone else? Patient reports no desire to harm self or others. Onset of symptoms was September 12, 2021 at 04:30. 09:20 Method Of Arrival: Ambulatory ap3 09:20 Acuity: JOSEPH 4 ap3 13:28 Acuity: JOSEPH 3 iw Triage Assessment: 09:21 Headache History: The patient has had previous headaches and this one is similar to ap3 previous episodes. General: Appears uncomfortable, Behavior is calm, cooperative. Pain: Complains of pain in headache and generalized body aches Pain currently is 10 out of 10 on a pain scale. Pain began suddenly, 0 Also complains of nausea, photophobia. Neuro: Level of Consciousness is awake, alert, obeys commands, Oriented to person, place, time, situation, Appropriate for age Gait is steady, Speech is normal. Cardiovascular: Patient's skin is warm and dry. Respiratory: Airway is patent Respiratory effort is even, unlabored, Respiratory pattern is regular, symmetrical. GI: Reports nausea, vomiting. 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 - Social history:: Smoking status: Reported history of juuling and/or vaping. Screenin:24 Abuse screen: Denies threats or abuse. Nutritional screening: No deficits noted. ap3 Tuberculosis screening: No symptoms or risk factors identified. 10:37 Fall Risk None identified. adams Assessment: 10:37 Pain: Complains of pain in head. adams Vital Signs: 09:20 BP 120 / 83; Pulse 76; Resp 17; Temp 98.3; Pulse Ox 100% ; Weight 54.43 kg; Height 5 ap3 ft. 2 in. (157.48 cm); 13:31 BP 125 / 82; Pulse 69; Resp 17; Pulse Ox 100% ; adams 09:20 Body Mass Index 21.95 (54.43 kg, 157.48 cm) ap3 ED Course: 09:08 Patient arrived in ED. ja2 09:15 Adalberto Rushing PA is PHCP. cp 09:15 Adalberto Simpson MD is Attending Physician. cp 09:21 Triage completed. ap3 09:22 Arm band placed on right wrist. ap3 09:42 Jesusita Almeida, RN is Primary Nurse. adams 10:37 Patient has correct armband on for positive identification. Bed in low position. adams 10:37 No provider procedures requiring assistance completed. adams 10:37 Inserted saline lock: 20 gauge in right antecubital area, using aseptic technique. adams 11:51 Urine --Ancillary (enter results) Sent. adams 12:48 Troponin High Sensitivity Sent. adams 12:48 D-Dimer Sent. adams 13:34 XRAY Chest (1 view) In Process Unspecified. EDMS 14:06 IV discontinued, intact, Pressure dressing applied. adams Administered Medications: 10:19 Drug: NS 0.9% 1000 ml Route: IV; Rate: 1 bolus; Site: right antecubital; adams 10:20 Drug: Pepcid (famotidine) 20 mg Route: IVP; Site: right antecubital; adams 11:23 Follow up: Response: No adverse reaction adams 10:20 Drug: Zofran (Ondansetron) 4 mg Route: IVP; Site: right antecubital; adams 11:23 Follow up: Response: No adverse reaction adams 11:36 Drug: Tylenol 1000 mg Route: PO; adams 11:38 Follow up: Response: No adverse reaction adams 12:48 Drug: Rocephin - (cefTRIAXone) 1 grams Route: IVPB; Infused Over: 30 mins; Site: right adams antecubital; 12:48 Drug: metroNIDAZOLE 2 grams Route: PO; Medication: 10:37 VIS not applicable for this client. adams Outcome: 13:36 Discharge ordered by . carlos 14:06 Discharged to home ambulatory. adams 14:06 Condition: good 14:06 Discharge instructions given to patient, Prescriptions given X 3. 14:07 Patient left the ED. adams Signatures: Dispatcher [employer] EDMS Taryn Proctor RN RN iw Adalberto Rushing PA PA cp Prokisch, Amanda, RN RN Melida Glover Heather RN RN
--- NOTE | 2021-09-12 13:41 | RAD REPORT ---
EXAM DESCRIPTION: RAD - Chest Single View - 09/12/2021 1:32 pm CLINICAL HISTORY: CHEST PAIN Chest pain. COMPARISON: Chest Single View dated 06/12/2019; Chest Pa And Lat (2 Views) dated 06/07/2017 FINDINGS: Portable technique limits examination quality. Mild interstitial prominence is present bilaterally suggesting a viral infection. The heart is normal in size. No displaced fractures.
[2021-09-12 14:14] VITALS: TEMP 98.3; O2SAT 100
[2021-09-12 14:16] VITALS: BP 125/82
--- NOTE | 2021-09-13 09:51 | EKG ---
Test Date: 2021-09-12 Test Time: 11:34:37 Form Press Operator: THERSEA MEASUREMENT RESULTS: Intervals: Rate: 73 NE: 136 QRSD: 82 QT: 388 QTc: 427 [place]: P: 57 NE: 136 QRS: 64 T: 31 INTERPRETIVE STATEMENTS: Normal sinus rhythm Cannot rule out Anterior infarct, age undetermined Abnormal ECG Compared to ECG 12/15/2020 16:51:36 Myocardial infarct finding now present Sinus tachycardia no longer present T-wave abnormality no longer present Possible ischemia no longer present Electronically Signed On 09-13-21 09:48:45 CDT by Alen Beckman
== END 2021-09-12 14:07 | disposition home or self-care (01) ==
LOC: ER 09:02
DX: R07.9 Chest pain, unspecified (principal); R51.9 Headache, unspecified; R11.2 Nausea with vomiting, unspecified; N39.0 Urinary tract infection, site not specified; A59.9 Trichomoniasis, unspecified; Z88.5 Allergy status to narcotic agent
CPT/HCPCS: 36415; 71045; 80053; 80307; 81003; 81015; 81025; 83690; 84484; 85025; 85379; 87086; 87088; 93005; 96374; 96375; 99284; J2405; J3490; J7030

== ENCOUNTER 2021-11-24 15:56 | Emergency (ER) | payer SELFPAY ==
--- OUTSIDE RECORDS SUMMARY | 2021-11-24 15:58 | XMS REPORT | Continuity of Care Document ---
:1995 Author Organization [facility] t Address [address] [place] [address] [address] [place] [address] Care Team Providers Name Role Phone Unavailable Unavailable Unavailable Problems This patient has no known problems. Allergies, Adverse Reactions, Alerts This patient has no known allergies or adverse reactions. Medications This patient has no known medications. Procedures This patient has no known procedures. Results Test Description Test Time Test Comments Results Result Comments Source SARS-CoV-2 (COVID-19), RT-PCR/TMA 2021-04-03 15:19:40 Test Item Value Reference Range Interpretation Comme nts SARS-CoV-2 INTERPRETATION NEGATIVE SEE NOTE S ARS-CoV-2 RNA NOT (test code = 08775) DETECTED Negative results do not preclude SARS-C oV-2 infection and should notb e used as the sole basis for patient management deci sions. Negativeresults must be combined with clinical o bservations, patient history ,and epidemiological information. Optimum specime n types and timingfor peak viral levels during infectio ns caused by SARS-CoV-2 have notbeen determined. Col lection of multiple specim ens or types ofspecimens may be necessary to detect virus. I mproper specimencollect ion and handling, sequence variab ility under primers/probes, or organism present below t he limit of detection may l ead to falsenegative r esults. Positive and negative pr edictive values oftesting are h ighly dependent on prevalence. False negative testresults are more likely when prevalence is h igh. SOURCE (test code = 22732) NOT SPECIFIED Note: Methodology is Mendy Aliya Real-Time RT-PCR. The expected result or reference range is NEGATI VE (Not Detected). For more information regarding COVID -19 testing to include clinica linformation, methodology det ail, intended use, FDA author erwin buckleyded fact sheets for patients or hea lthcare providers, see [facility] Announcement: S ARS-CoV-2 (COVID-19) by Jassi CALLOWAY at URL below (note,fact shee ts are provided by method given in report:https:// www.[employer]/c erendira/sloan t-communications/ Alternatively, see downloadable PDF fact sheet at:https://www. [employer]/COVID -19-RT-PCR UNLE SS OTHERWISE INDICATED, ALL TESTING PERFORMED ATCLINICAL PATH [facility], [facility]. [address] [place] [address] 4 MORTGAGE LOAN INTERVIEWER: Ita STYLES [id number] CAP ACCREDITATION N O. [id number]
[2021-11-24] MEDS ORDERED: ACETAMINOPHEN 500 MG TAB ONE (16:51)
--- NOTE | 2021-11-24 17:18 | RAD REPORT ---
EXAM DESCRIPTION: RAD - Foot Right 3 View - 11/24/2021 5:08 pm CLINICAL HISTORY: PAIN COMPARISON: No comparisons FINDINGS: Soft tissue swelling is seen affecting the great toe. No fracture appreciated.
--- NOTE | 2021-11-24 17:49 | ER ---
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 Informed boss of incident and was requested to continue working so I finished the day but I can barely walk at this point due to the pain. Bruising and swelling noted to right big toe/foot. Coronavirus screen: At this time, the client does not indicate any symptoms associated with coronavirus-19. Ebola Screen: No symptoms or risks identified at this time. Initial Sepsis Screen: Does the patient meet any 2 criteria? No. Patient's initial sepsis screen is negative. Does the patient have a suspected source of infection? No. Patient's initial sepsis screen is negative. Risk Assessment: Do you want to hurt yourself or someone else? Patient reports no desire to harm self or others. Onset of symptoms was November 24, 2021 at 10:30. 16:18 Method Of Arrival: Wheelchair [facility] 16:18 Acuity: JOSEPH 4 jl7 Triage Assessment: 16:22 General: Appears in no apparent distress. uncomfortable, Behavior is calm, cooperative, jl7 appropriate for age. Pain: Complains of pain in right foot Pain currently is 10 out of 10 on a pain scale. 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 - Social history:: Smoking status: Patient denies any tobacco usage or history of. Screenin:17 Abuse screen: Denies threats or abuse. Denies injuries from another. Nutritional hb screening: No deficits noted. Tuberculosis screening: No symptoms or risk factors identified. Fall Risk None identified. Assessment: 17:18 General: Appears in no apparent distress. Behavior is calm, cooperative. Pain: Pain hb currently is 10 out of 10 on a pain scale. Neuro: Level of Consciousness is awake, alert, obeys commands, Oriented to person, place, time, situation. Cardiovascular: Patient's skin is warm and dry. Respiratory: Respiratory effort is even, unlabored, Respiratory pattern is regular, symmetrical. GI: No signs and/or symptoms were reported involving the gastrointestinal system. : No signs and/or symptoms were reported regarding the genitourinary system. EENT: No signs and/or symptoms were reported regarding the EENT system. Derm: Skin is pink, warm \T\ dry. Musculoskeletal: Reports right great toe pain and bruising. 18:00 Reassessment: Patient appears in no apparent distress at this time. Patient and/or hb family updated on plan of care and expected duration. Pain level reassessed. Patient is alert, oriented x 3, equal unlabored respirations, skin warm/dry/pink. Vital Signs: 16:18 BP 126 / 78; Pulse 89; Resp 17; Temp 99; Pulse Ox 100% ; Weight 54.43 kg; Height 5 ft. jl7 2 in. (157.48 cm); Pain 10/10; 16:18 Body Mass Index 21.95 (54.43 kg, 157.48 cm) jl7 ED Course: 15:58 Patient arrived in ED. rg4 15:59 [facility]. jl9 15:59 Adalberto Simpson MD is Attending Physician. jl9 16:22 Triage completed. jl7 16:22 Arm band placed on right wrist. jl7 16:31 Jesusita Melgar, RN is Primary Nurse. hb 17:10 XRAY Foot RIGHT 3 View In Process Unspecified. EDMS 17:17 Patient has correct armband on for positive identification. hb 18:00 No provider procedures requiring assistance completed. Patient did not have IV access hb during this emergency room visit. Administered Medications: 16:46 Drug: Tylenol 1000 mg Route: PO; ss Medication: 18:00 VIS not applicable for this client. hb Outcome: 17:48 Discharge ordered by . jl9 18:00 Discharged to home ambulatory. hb 18:00 Condition: stable 18:00 Discharge instructions given to patient, Instructed on discharge instructions, follow up and referral plans. medication usage, Demonstrated understanding of instructions, follow-up care, medications, Prescriptions given X 2. 18:13 Patient left the ED. hb Signatures: Dispatcher [employer] EDWV Gema Shaffer RN RN ss Baxter, Heather, RN RN hb Garcia, Rubi rg4 Keyla Peng RN RN jl7 Álvaro Prescott9
--- NOTE | 2021-11-24 17:49 | EDPHYS ---
Physician Documentation [facility] Name: Chelsy Riddle Age: 26 yrs Sex: Female : 1995 Arrival Date: 11/24/2021 Time: 15:58 Bed 12 Private MD: BARBER Physician Adalberto Simpson HPI: 11/24 16:40 This 26 yrs old Female presents to ER via Wheelchair with complaints of right jl9 greater toe pain s/p dropping an object on it this morning. . 16:40 Onset: The symptoms/episode began/occurred this morning. The patient has not jl9 experienced similar symptoms in the past. 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 - Social history:: Smoking status: Patient denies any tobacco usage or history of. ROS: 16:40 Constitutional: Negative for fever, chills, and weight loss, Eyes: Negative for injury, jl9 pain, redness, and discharge, ENT: Negative for injury, pain, and discharge, Neck: Negative for injury, pain, and swelling, Cardiovascular: Negative for chest pain, palpitations, and edema, Respiratory: Negative for shortness of breath, cough, wheezing, and pleuritic chest pain, Abdomen/GI: Negative for abdominal pain, nausea, vomiting, diarrhea, and constipation, Back: Negative for injury and pain, : Negative for injury, bleeding, discharge, and swelling. 16:40 Skin: Negative for injury, rash, and discoloration, Neuro: Negative for headache, weakness, numbness, tingling, and seizure, Psych: Negative for depression, anxiety, suicide ideation, homicidal ideation, and hallucinations, Allergy/Immunology: Negative for hives, rash, and allergies, Endocrine: Negative for neck swelling, polydipsia, polyuria, polyphagia, and marked weight changes, Hematologic/Lymphatic: Negative for swollen nodes, abnormal bleeding, and unusual bruising. 16:40 MS/extremity: Positive for Right greater toe pain. . Exam: 16:40 Constitutional: This is a well developed, well nourished patient who is awake, alert, jl9 and in no acute distress. Head/Face: Normocephalic, atraumatic. Eyes: Pupils equal round and reactive to light, extra-ocular motions intact. Lids and lashes normal. Conjunctiva and sclera are non-icteric and not injected. Cornea within normal limits. Periorbital areas with no swelling, redness, or edema. ENT: Mucous membranes moist. Neck: Trachea midline, no thyromegaly or masses palpated, and no cervical lymphadenopathy. Supple, full range of motion without nuchal rigidity, or vertebral point tenderness. No Meningismus. Chest/axilla: Normal chest wall appearance and motion. Nontender with no deformity. No lesions are appreciated. Cardiovascular: Regular rate and rhythm with a normal S1 and S2. No gallops, murmurs, or rubs. Normal PMI, no JVD. No pulse deficits. Respiratory: Lungs have equal breath sounds bilaterally, clear to auscultation and percussion. No rales, rhonchi or wheezes noted. No increased work of breathing, no retractions or nasal flaring. Abdomen/GI: Soft, non-tender, with normal bowel sounds. No distension or tympany. No guarding or rebound. No evidence of tenderness throughout. Back: No spinal tenderness. No costovertebral tenderness. Full range of motion. Skin: Warm, dry with normal turgor. Normal color with no rashes, no lesions, and no evidence of cellulitis. 16:40 Neuro: Awake and alert, GCS 15, oriented to person, place, time, and situation. Cranial nerves II-XII grossly intact. Motor strength 5/5 in all extremities. Sensory grossly intact. Cerebellar exam normal. Normal gait. Psych: Awake, alert, with orientation to person, place and time. Behavior, mood, and affect are within normal limits. 16:40 Musculoskeletal/extremity: Extremities: contusion, pain, R greater toe., ROM: limited active range of motion due to pain, Circulation is intact in all extremities. Sensation intact. Vital Signs: 16:18 BP 126 / 78; Pulse 89; Resp 17; Temp 99; Pulse Ox 100% ; Weight 54.43 kg; Height 5 ft. jl7 2 in. (157.48 cm); Pain 10/10; 16:18 Body Mass Index 21.95 (54.43 kg, 157.48 cm) jl7 MDM: 15:59 Patient medically screened. jl9 16:41 Data reviewed: vital signs, nurses notes. jl9 11/24 16:24 Order name: XRAY Foot RIGHT 3 View; Complete Time: 17:20 jl9 Administered Medications: 16:46 Drug: Tylenol 1000 mg Route: PO; Disposition Summary: 11/24/21 17:48 Discharge Ordered Location: Home jl9 Condition: Stable jl9 Diagnosis - Contusion of great toe without damage to nail jl9 Followup: jl9 - With: Private Physician - When: 1 - 2 days - Reason: Recheck today's complaints, Continuance of care, Re-evaluation by your physician Discharge Instructions: - Discharge Summary Sheet jl9 - Contusion, [id number] jl9 Forms: - Medication Reconciliation Form jl9 - Thank You Letter jl9 - Antibiotic Education jl9 - Prescription Opioid Use jl9 Prescriptions: - Ibuprofen 800 mg Oral Tablet - take 1 tablet by ORAL route every 8 hours As needed take with food; 30 tablet; jl9 Refills: 0, Product Selection Permitted Signatures: Dispatcher [employer] Gema Lea RN RN Keyla Mcmahon RN RN [email or web address] Álvaro Prescott jl9
[2021-11-24 19:29] VITALS: BP 126/78; TEMP 99; O2SAT 100
== END 2021-11-24 18:13 | disposition home or self-care (01) ==
LOC: ER 15:56
DX: S90.111A Contusion of right great toe without damage to nail, initial encounter (principal); Z88.5 Allergy status to narcotic agent
CPT/HCPCS: 99283

== ENCOUNTER 2023-02-25 17:09 | Emergency (ER) | payer SELFPAY ==
[2023-02-25] MEDS ORDERED: ACETAMINOPHEN 500 MG TAB ONE (17:43)
[2023-02-25] MEDS ORDERED: AZITHROMYCIN 250 MG TAB ONE (17:44)
[2023-02-25] MEDS ORDERED: CEFTRIAXONE 1000 MG/VIAL ONE (17:44)
[2023-02-25] MEDS ORDERED: IBUPROFEN 200 MG TAB PO ONE (17:44)
[2023-02-25] MEDS ORDERED: IBUPROFEN 400 MG TAB ONE (17:44)
[2023-02-25] MEDS ORDERED: NA CHLORIDE 0.9% 100 ML ONE (17:45)
[2023-02-25] MEDS ORDERED: NA CHLORIDE 0.9% 1,000 ML ONE (17:45)
[2023-02-25 18:20] LABS: Absolute Lymphocytes (CBC) 0.4 K/uL (0.7-4.9); Hematocrit 34.1 % (36.0-45.0); Lymphocytes % 10.4 % (15.3-44.8); MCV 70.5 fL (80-100); MPV 8.1 fL (7.6-11.3); Platelets 236 thou/uL (152-406); RBC Red Blood Cell Count 4.84 M/uL (3.86-4.86)
[2023-02-25 18:21] LABS: Albumin 4.1 g/dL (3.4-5.0); Bilirubin Total 0.3 mg/dL (0.2-1.0); Potassium 3.1 mEq/L (3.5-5.1); Protein, Total 8.3 g/dL (6.4-8.2)
--- NOTE | 2023-02-25 18:31 | RAD REPORT ---
EXAM DESCRIPTION: RAD - Chest Pa And Lat (2 Views) - 02/25/2023 6:21 pm CLINICAL HISTORY: Congestion;Cough Chest pain. COMPARISON: <Comparisons> FINDINGS: The lungs are clear. The heart is normal in size. No displaced fractures. IMPRESSION: No acute or concerning finding suspected.
[2023-02-25 18:54] LABS: SARS-COV-2 RT PCR NEGATIVE (NEGATIVE)
--- NOTE | 2023-02-25 19:14 | ER ---
Nurse's Notes [facility] Name: Chelsy Riddle Age: 27 yrs Sex: Female : 1995 Arrival Date: 02/25/2023 Time: 17:09 Bed 11 Private MD: Diagnosis: Acute upper respiratory infection, unspecified;Fever, unspecified;Influenza due to other identified influenza virus with other respiratory manifestations-influenza B Presentation: 02/25 17:18 Chief complaint: Patient states: Fever, body aches, head ache and cough onset today. Pt cm10 states that her fever this morning was 102..5f. Pt states that her daughter had the flu last week. Coronavirus screen: Vaccine status: Patient reports being unvaccinated. Client denies travel out of the [place] in the last 14 days. Ebola Screen: Patient denies travel to an Ebola-affected area in the 21 days before illness onset. No symptoms or risks identified at this time. Initial Sepsis Screen: Does the patient meet any 2 criteria? No. Patient's initial sepsis screen is negative. Does the patient have a suspected source of infection? No. Patient's initial sepsis screen is negative. Risk Assessment: Do you want to hurt yourself or someone else? Patient reports no desire to harm self or others. Onset of symptoms was February 25, 2023. 17:18 Method Of Arrival: Ambulatory cm10 17:18 Acuity: JOSEPH 4 cm10 Triage Assessment: 17:20 General: Appears in no apparent distress. comfortable, Behavior is calm, cooperative. cm10 Pain: Complains of pain in Genralized body aches and headache. Neuro: No deficits noted. Level of Consciousness is awake, alert, obeys commands, Oriented to person, place, time, situation. Cardiovascular: No deficits noted. Patient's skin is warm and dry. Respiratory: Reports cough that is Airway is patent Respiratory effort is even, unlabored, Respiratory pattern is regular, symmetrical, Onset: The symptoms/episode began/occurred gradually, the patient has mild shortness of breath. GI: No deficits noted. No signs and/or symptoms were reported involving the gastrointestinal system. : No deficits noted. No signs and/or symptoms were reported regarding the genitourinary system. Derm: No deficits noted. No signs and/or symptoms reported regarding the dermatologic system. Skin is intact, Skin is pink, warm \T\ dry. Musculoskeletal: No deficits noted. Range of motion: intact in all extremities. 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 - Social history:: Smoking status: Patient/guardian denies using tobacco. - Family history:: not pertinent. Screenin:21 [facility] ED Fall Risk Assessment (Adult) History of falling in the last 3 months, cm10 including since admission No falls in past 3 months (0 pts) Confusion or Disorientation No (0 pts) Intoxicated or Sedated No (0 pts) Impaired Gait No (0 pts) Mobility Assist Device Used No (0 pt) Altered Elimination No (0 pt) Score/Fall Risk Level 0 - 2 = Low Risk Oriented to surroundings, Maintained a safe environment, Hourly rounding (assess needs \T\ fall precautionary measures) done. Abuse screen: Denies threats or abuse. Denies injuries from another. Nutritional screening: No deficits noted. Tuberculosis screening: No symptoms or risk factors identified. Assessment: 18:58 General: Appears uncomfortable, Behavior is calm, cooperative, Reports chills for fever tl4 for feeling ill for fatigue for. Cardiovascular: Rhythm is regular. Respiratory: Reports cough that is Airway is patent Trachea midline Respiratory effort is even, unlabored, Respiratory pattern is regular, Breath sounds are clear bilaterally. Vital Signs: 17:18 BP 132 / 74; Pulse 111; Resp 18; Temp 99.3(O); Pulse Ox 100% ; Weight 56.7 kg; Height 5 cm10 ft. 2 in. ; Pain 10/10; 18:06 BP 117 / 69; Pulse 95; Resp 18; Pulse Ox 100% on R/A; Pain 8/10; tl4 18:30 BP 116 / 79; Pulse 114; Resp 18; Pulse Ox 100% ; Pain 6/10; tl4 19:00 BP 137 / 90; Pulse 120; Resp 20; Temp 99.3(O); Pulse Ox 100% ; Pain 5/10; tl4 17:18 Body Mass Index 22.86 (56.70 kg, 157.48 cm) cm10 17:18 Pain Scale: Adult cm10 18:06 Pain Scale: Adult tl4 18:30 Pain Scale: Adult tl4 19:00 Pain Scale: Adult tl4 [place] Coma Score: 18:06 Eye Response: spontaneous(4). Motor Response: obeys commands(6). Verbal Response: tl4 oriented(5). Total: 15. 19:04 Eye Response: spontaneous(4). Motor Response: obeys commands(6). Verbal Response: bereket oriented(5). Total: 15. ED Course: 17:13 Patient arrived in ED. im 17:19 Triage completed. cm10 17:20 Adalberto Simpson MD is Attending Physician. bereket 17:20 Arm band placed on Patient placed in an exam room, on a stretcher. cm10 17:21 Patient has correct armband on for positive identification. Provided Education on: ER cm10 process and procedures.. 17:25 LogdaReid yi is Primary Nurse. tl4 17:50 Inserted saline lock: 20 gauge in left antecubital area, using aseptic technique. Blood tl4 collected. 18:05 COVID-19/FLU A+B/RSV Sent. tl4 18:05 Comprehensive Metabolic Panel Sent. tl4 18:05 CBC with Diff Sent. tl4 18:22 Chest Pa And Lat (2 Views) XRAY In Process Unspecified. EDMS 18:59 No provider procedures requiring assistance completed. tl4 19:35 intact, bleeding controlled, No redness/swelling at site. Pressure dressing applied. cp4 Administered Medications: 17:46 Drug: Acetaminophen PO 1000 mg PO once Route: PO; tl4 18:57 Follow up: Response: Temperature is decreased; Pain is decreased tl4 17:46 Drug: Ibuprofen PO 600 mg PO once Route: PO; tl4 18:57 Follow up: Response: Temperature is decreased; Pain is decreased tl4 17:46 Drug: AZITHromycin PO 500 mg PO once Route: PO; tl4 18:57 Follow up: Response: No adverse reaction tl4 17:52 Drug: NS 0.9% IV 1000 ml IV at 1 bolus Per protocol; 1000 mL bolus Route: IV; Rate: 1 tl4 bolus; Infused Over: 1 hrs; Site: left antecubital; Delivery: Primary tubing; 18:58 Follow up: Response: No adverse reaction; IV Status: Completed infusion; IV Intake: tl4 1000ml 17:52 Drug: Rocephin IV 1 grams IV at per protocol once; Given slow IV push per pharmacy tl4 instructions Route: IV; Rate: per protocol; Infused Over: 15 mins; Site: left antecubital; Delivery: Dial-a-flow; 19:02 Drug: Potassium PO Effervescent Tablet 50 mEq PO once; dissolve in 4 ounces of water or tl4 juice Route: PO; 19:30 Drug: Decadron - Dexamethasone IVP 10 mg IVP once Route: IVP; Site: left antecubital; cp4 19:30 Drug: Oseltamivir PO 75 mg PO once Route: PO; cp4 Medication: 17:21 VIS not applicable for this client. cm10 Intake: 18:58 IV: 1000ml; Total: 1000ml. tl4 Outcome: 19:13 Discharge ordered by . bereket 19:35 Discharged to home ambulatory, cp4 19:35 Condition: stable 19:35 Discharge instructions given to patient, Instructed on discharge instructions, follow up and referral plans. medication usage, Demonstrated understanding of instructions, follow-up care, medications, Prescriptions given X 2, 19:36 Patient left the ED. cp4 Signatures: Dispatcher [employer] EDCA Adalberto Simpson MD MD cha Mendoza, Maddy Henderson RN RN cm10 Princess Ontiveros cp4 Reid Hirsch tl4
--- NOTE | 2023-02-25 19:14 | EDPHYS ---
Physician Documentation [facility] Name: Chelsy Riddle Age: 27 yrs Sex: Female : 1995 Arrival Date: 02/25/2023 Time: 17:09 Bed 11 Private MD: ED Physician Adalberto Simpson HPI: 02/25 19:04 This 27 yrs old Female presents to ER via Ambulatory with complaints of bereket Breathing Difficulty, Flu Symptoms. 19:04 The patient has shortness of breath at rest, with light activity. Onset: The bereket symptoms/episode began/occurred 1 day(s) ago. Duration: The symptoms are intermittent, with no pattern. The patient's shortness of breath is aggravated by coughing, walking, is alleviated by rest. Associated signs and symptoms: Pertinent positives: non-productive cough, dizziness, fever, nausea. Severity of symptoms: At their worst the symptoms were mild moderate in the emergency department the symptoms are unchanged. The patient has experienced similar episodes in the past, a few times. 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 - Social history:: Smoking status: Patient/guardian denies using tobacco. - Family history:: not pertinent. ROS: 19:04 Eyes: Negative for injury, pain, redness, and discharge, Neck: Negative for injury, bereket pain, and swelling, Cardiovascular: Negative for chest pain, palpitations, and edema, Abdomen/GI: Negative for abdominal pain, nausea, vomiting, diarrhea, and constipation, Back: Negative for injury and pain, : Negative for injury, bleeding, discharge, and swelling, MS/Extremity: Negative for injury and deformity, Skin: Negative for injury, rash, and discoloration, Psych: Negative for depression, anxiety, suicide ideation, homicidal ideation, and hallucinations, Allergy/Immunology: Negative for hives, rash, and allergies, Endocrine: Negative for neck swelling, polydipsia, polyuria, polyphagia, and marked weight changes, Hematologic/Lymphatic: Negative for swollen nodes, abnormal bleeding, and unusual bruising, 19:04 Constitutional: Positive for chills, fatigue, fever, malaise, 19:04 Respiratory: Positive for cough, with no reported sputum, 19:04 Neuro: Positive for headache, weakness, Exam: 19:04 Head/Face: Normocephalic, atraumatic. Eyes: Pupils equal round and reactive to light, bereket extra-ocular motions intact. Lids and lashes normal. Conjunctiva and sclera are non-icteric and not injected. Cornea within normal limits. Periorbital areas with no swelling, redness, or edema. Neck: Trachea midline, no thyromegaly or masses palpated, and no cervical lymphadenopathy. Supple, full range of motion without nuchal rigidity, or vertebral point tenderness. No Meningismus. Chest/axilla: Normal chest wall appearance and motion. Nontender with no deformity. No lesions are appreciated. Cardiovascular: Regular rate and rhythm with a normal S1 and S2. No gallops, murmurs, or rubs. Normal PMI, no JVD. No pulse deficits. Respiratory: Lungs have equal breath sounds bilaterally, clear to auscultation and percussion. No rales, rhonchi or wheezes noted. No increased work of breathing, no retractions or nasal flaring. Abdomen/GI: Soft, non-tender, with normal bowel sounds. No distension or tympany. No guarding or rebound. No evidence of tenderness throughout. Back: No spinal tenderness. No costovertebral tenderness. Full range of motion. Skin: Warm, dry with normal turgor. Normal color with no rashes, no lesions, and no evidence of cellulitis. MS/ Extremity: Pulses equal, no cyanosis. Neurovascular intact. Full, normal range of motion. Neuro: Awake and alert, GCS 15, oriented to person, place, time, and situation. Cranial nerves II-XII grossly intact. Motor strength 5/5 in all extremities. Sensory grossly intact. Cerebellar exam normal. Normal gait. Psych: Awake, alert, with orientation to person, place and time. Behavior, mood, and affect are within normal limits. 19:04 Constitutional: The patient appears febrile, 19:04 Neck: ROM/movement: is normal, no acute changes, limited range of motion, is not appreciated, Meningeal signs: are not present, Kernig's sign is negative, Brudzinski's sign is negative, 19:04 Musculoskeletal/extremity: ROM: intact in all extremities, full active range of motion, full passive range of motion, Circulation is intact in all extremities. Sensation intact. Compartment Syndrome exam of affected extremity: is normal. DVT Exam: No signs of deep vein thrombosis. no pain, no swelling, no tenderness, negative Homans' sign noted on exam, no appreciated bluish discoloration, no erythema, no increased warmth, Vital Signs: 17:18 BP 132 / 74; Pulse 111; Resp 18; Temp 99.3(O); Pulse Ox 100% ; Weight 56.7 kg; Height 5 cm10 ft. 2 in. ; Pain 10/10; 18:06 BP 117 / 69; Pulse 95; Resp 18; Pulse Ox 100% on R/A; Pain 8/10; tl4 18:30 BP 116 / 79; Pulse 114; Resp 18; Pulse Ox 100% ; Pain 6/10; tl4 19:00 BP 137 / 90; Pulse 120; Resp 20; Temp 99.3(O); Pulse Ox 100% ; Pain 5/10; tl4 17:18 Body Mass Index 22.86 (56.70 kg, 157.48 cm) cm10 17:18 Pain Scale: Adult cm10 18:06 Pain Scale: Adult tl4 18:30 Pain Scale: Adult tl4 19:00 Pain Scale: Adult tl4 [place] Coma Score: 18:06 Eye Response: spontaneous(4). Motor Response: obeys commands(6). Verbal Response: tl4 oriented(5). Total: 15. 19:04 Eye Response: spontaneous(4). Motor Response: obeys commands(6). Verbal Response: bereket oriented(5). Total: 15. MDM: 17:20 Patient medically screened. bereket 19:11 Differential diagnosis: Bronchitis pneumonia, reactive airway disease, Sepsis. bereket Antibiotic administration: The patient is discharged and will get outpatient antibiotics, Tamiflu, Zithromax. Immunization status:. Data reviewed: vital signs, nurses notes, lab test result(s), Flu: positive radiologic studies. Consideration of Admission/Observation Escalation of care including admission/observation considered. I considered the following discharge prescriptions or medication management in the emergency department Medications were administered in the Emergency Department. See MAR. Independent interpretation of the following test(s) in the Emergency Department X-Ray: My interpretation is cxr negative. 02/25 17:22 Order name: CBC with Diff; Complete Time: 19:03 [facility] 02/25 17:22 Order name: Comprehensive Metabolic Panel; Complete Time: 18:22 [facility] 02/25 17:22 Order name: COVID-19/FLU A+B/RSV; Complete Time: 19:03 [facility] 02/25 17:22 Order name: Chest Pa And Lat (2 Views) XRAY; Complete Time: 19:03 [facility] Administered Medications: 17:46 Drug: Acetaminophen PO 1000 mg PO once Route: PO; tl4 18:57 Follow up: Response: Temperature is decreased; Pain is decreased tl4 17:46 Drug: Ibuprofen PO 600 mg PO once Route: PO; tl4 18:57 Follow up: Response: Temperature is decreased; Pain is decreased tl4 17:46 Drug: AZITHromycin PO 500 mg PO once Route: PO; tl4 18:57 Follow up: Response: No adverse reaction tl4 17:52 Drug: NS 0.9% IV 1000 ml IV at 1 bolus Per protocol; 1000 mL bolus Route: IV; Rate: 1 tl4 bolus; Infused Over: 1 hrs; Site: left antecubital; Delivery: Primary tubing; 18:58 Follow up: Response: No adverse reaction; IV Status: Completed infusion; IV Intake: tl4 1000ml 17:52 Drug: Rocephin IV 1 grams IV at per protocol once; Given slow IV push per pharmacy tl4 instructions Route: IV; Rate: per protocol; Infused Over: 15 mins; Site: left antecubital; Delivery: Dial-a-flow; 19:02 Drug: Potassium PO Effervescent Tablet 50 mEq PO once; dissolve in 4 ounces of water or tl4 juice Route: PO; 19:30 Drug: Decadron - Dexamethasone IVP 10 mg IVP once Route: IVP; Site: left antecubital; cp4 19:30 Drug: Oseltamivir PO 75 mg PO once Route: PO; cp4 Disposition Summary: 02/25/23 19:13 Discharge Ordered Notes: Location: Home bereket Problem: new bereket Symptoms: have improved bereket Condition: Stable bereket Diagnosis - Acute upper respiratory infection, unspecified bereket - Fever, unspecified bereket - Influenza due to other identified influenza virus with other respiratory bereket manifestations - influenza B Followup: bereket - With: Private Physician - When: 2 - 3 days - Reason: Recheck today's complaints, Continuance of care, Re-evaluation by your physician Discharge Instructions: - Discharge Summary Sheet [facility] - Fever, Adult [facility] - Influenza, Adult [facility] - Upper Respiratory Infection, Adult [facility] - Cool Mist Vaporizer [facility] - Influenza Tests [facility] - Upper Respiratory Infection, Adult, [id number] [facility] - Influenza, Adult, [id number] [facility] - Cough, Adult [facility] Forms: - Medication Reconciliation Form [facility] - Thank You Letter [facility] - Antibiotic Education [facility] - Prescription Opioid Use [facility] - Patient Portal Instructions [facility] - Leadership Thank You Letter [facility] Prescriptions: - Zithromax Z-Jc 250 mg Oral Tablet - take 1 tablet ORAL route as directed for 5 days Day 1 - take two (2) tablets [facility] one time. Day 2, 3, 4 , 5 take one (1) tablet once daily.; 6 tablet; Refills: 0, Product Selection Permitted - Tamiflu 75 mg Oral capsule - take 1 tablet ORAL route every 12 hours for 5 days; 10 tablet; Refills: 0, [facility] Product Selection Permitted Signatures: Dispatcher [employer] Adalberto Gage MD MD cha Martinez, Clarissa, RN RN cm10 Princess Ontiveros cp4 Reid Hirsch 4
[2023-02-25] MEDS ORDERED: POTASSIUM 25 MEQ EFFERV TAB ONE (19:16)
[2023-02-25] MEDS ORDERED: OSELTAMIVIR 75 MG CAP PO ONE (19:38)
[2023-02-25] MEDS ORDERED: dexAMETHasone 10 MG/ML VIAL ONE (19:38)
[2023-02-25 22:01] VITALS: BP 117/69; TEMP 99.3; O2SAT 100
== END 2023-02-25 19:36 | disposition home or self-care (01) ==
LOC: ER 17:09
DX: J10.1 Influenza due to other identified influenza virus with other respiratory manifestations (principal); Z11.52 Encounter for screening for COVID-19; Z88.5 Allergy status to narcotic agent
CPT/HCPCS: 0241U; 36415; 71046; 80053; 85025; J0696; J1100; J7030

== ENCOUNTER → 2023-04-30 | Emergency (ER) | payer SELFPAY ==
[~2023-04-30] MED LIST: KETOROLAC 30 MG/ML INJ ONE; LORazepam 2 MG/ML VIAL ONE
[2023-05-01 01:20] LABS: Absolute Lymphocytes (CBC) 1.1 K/uL (0.7-4.9); Hematocrit 30.7 % (36.0-45.0); MCV 70.9 fL (80-100); MPV 8.4 fL (7.6-11.3); Platelets 310 thou/uL (152-406); RBC Red Blood Cell Count 4.33 M/uL (3.86-4.86)
[2023-05-01 01:28] LABS: Albumin 3.6 g/dL (3.4-5.0); Bilirubin Direct 0.1 mg/dL (0-0.2); Bilirubin Indirect, Calculated 0.3 mg/dL (0.2-0.8); Bilirubin Total 0.4 mg/dL (0.2-1.0); Magnesium 2.1 mg/dL (1.6-2.4); Potassium 3.4 mEq/L (3.5-5.1); Protein, Total 7.5 g/dL (6.4-8.2); Troponin High Sensitivity 16.6 pg/mL (<58.9)
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
[2023-05-01 02:19] VITALS: O2SAT 100
[2023-05-01 02:39] VITALS: BP 102/58; TEMP 98.1
--- NOTE | 2023-05-01 20:30 | RAD REPORT ---
EXAM DESCRIPTION: RAD - Chest Single View - 04/30/2023 11:34 pm CLINICAL HISTORY: CHEST PAIN COMPARISON: None TECHNIQUE: Single AP view of the chest. FINDINGS: Lung volumes adequate. Cardiac silhouette is normal in size. No pneumothorax. No large pleural effusion. No focal consolidation. No acute bony finding. IMPRESSION: No evidence of acute cardiopulmonary disease. Electronically signed by: Jenifer Bailey MD 04/30/2023 11:48 PM CHILD AND ADOLESCENT THERAPIST Due to temporary technical issues with the PACS/Fluency reporting system, reports are being signed by the in house radiologists without review as a courtesy to insure prompt reporting. The interpreting radiologist is fully responsible for the content of the report.
--- NOTE | 2023-05-04 11:05 | EKG ---
Test Date: 2023-04-30 Test Time: 23:23:14 Ramp Jockey: LOREN MEASUREMENT RESULTS: Intervals: Rate: 95 PA: 136 QRSD: 80 QT: 360 QTc: 452 [place]: P: 67 PA: 136 QRS: 78 T: 48 INTERPRETIVE STATEMENTS: Sinus rhythm with marked sinus arrhythmia Otherwise normal ECG Compared to ECG 09/12/2021 11:34:37 Myocardial infarct finding no longer present Electronically Signed On 05-04-23 11:00:14 [employer] by Jose Park
== END ==
LOC: ER 23:13
DX: F41.9 Anxiety disorder, unspecified (principal)
CPT/HCPCS: 36415; 71045; 80048; 80076; 83735; 84484; 85025; 93005; 96374; 96375; 99284